=== PATIENT | male | born 1955 | race Caucasian/White ===

== ENCOUNTER 2017-08-21 16:52 | Emergency (ER) | payer MEDICAID, SELFPAY ==
[2017-08-21 16:54] VITALS: BMI 32.1
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
[2017-08-21 17:05] VITALS: BP 160/80; PULSE 92; RESP 16; TEMP 37; O2SAT 98
[2017-08-21 17:08] VITALS: BP 160/80; RESP 16; TEMP 36.8; O2SAT 98
[2017-08-21 17:10] LABS: Basophils % 0.2 % (0.1-2.0); Eosinophils % 0.2 % (0.1-12.0); Hematocrit 46.5 % (42.0-52.0); Lymphocytes # 2.2 K/mm3 (0.7-4.5); Lymphocytes % 12.3 K/mm3 (10-50); Mean Corpuscular HGB Conc 32.2 g/dL (31.8-35.4); Mean Corpuscular Hemoglobin 28.1 pg (27.0-31.2); Mean Corpuscular Volume 87.2 fl (80-94); Mean Platelet Volume 9.3 fl (7.4-10.4); Monocytes # 14.5 K/mm3 (0.1-1.0); Monocytes % 82.6 % (1.7-9.3); Neutrophils # 0.8 K/mm3 (1.8-7.8); Platelet Count 261 K/mm3 (142-424); Red Blood Count 5.33 M/mm3 (4.60-6.20); Red Cell Distribution Width 12.8 % (11.5-17.5); White Blood Count 17.6 K/mm3 (4.8-10.8)
[2017-08-21 17:12] LABS: MANUAL DIFFERENTIAL MANUAL DIFFERENTIAL (MANUAL DIFF); Neutrophils % 4.7 % (37.0-80.0)
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
[2017-08-21 17:16] LABS: INR 1.55 (0.9-1.1); Prothrombin Time 16.8 seconds (9.4-11.8)
[2017-08-21 17:19] LABS: Anion Gap 18.5 mEq/L (5-15); Blood Urea Nitrogen 34 mg/dL (7-18); Carbon Dioxide 24 mmol/L (21.0-32.0); Chloride 85 mmol/L (98-107); Creatinine Clearance Estimated 47 mL/min (0-300); Creatinine,Serum 2.43 mg/dL (0.70-1.30); Estimated Glomerular Filt Rate 27 ml/min (>60); GFR (African American) 33 ML/MIN (>60); Sodium 123 mmol/L (136-145)
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
[2017-08-21 17:24] LABS: Potassium 4.5 mmoL/L (3.5-5.1)
[2017-08-21 17:25] LABS: Glucose 773 mg/dL (74-106)
--- NOTE | 2017-08-21 17:27 | PC.NURSE ---
NOTIFIED MD OF CRITICAL GLUCOSE [phone]. WILL NOTIFY EMS.
[2017-08-21 17:29] VITALS: BMI 32.1
[2017-08-21 17:29] LABS: Lymphocytes % 4 % (10-50); Monocytes % 4 % (2-9); Neutrophils % 86 % (42-76); Platelet Estimate Normal; RBC Morphology Normal; Total Cells Counted 100
[2017-08-21 17:32] LABS: CKMB Relative Index 1.2 U/L (0-4.0); Creatine Kinase 113 U/L (39-308); Creatine Kinase MB 1.3 mg/ml (0.0-3.6); Troponin I < 0.02 ng/ml (0.00-0.06)
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
[2017-08-29 07:40] LABS: POC Glucose,Bedside > 600 mg/dL
== END 2017-08-21 17:45 | disposition short-term general hospital (02) ==
PROVIDERS: Emergency Provider Emergency Medicine; Family Provider Family Medicine; PCP Family Medicine
DX: S82.891A Other fracture of right lower leg, initial encounter for closed fracture (principal); S06.9X9A Unspecified intracranial injury with loss of consciousness of unspecified duration, initial encounter; S29.9XXA Unspecified injury of thorax, initial encounter; V47.9XXA Unspecified car occupant injured in collision with fixed or stationary object in traffic accident, initial encounter; Y92.410 Unspecified street and highway as the place of occurrence of the external cause
CPT/HCPCS: 71045; 72170; 73600; 80048; 82550; 82553; 82962; 84484; 85007; 85025; 85610; 93005; 99281

== ENCOUNTER → 2017-11-03 13:31 | Outpatient (CLI) | payer MEDICAID, SELFPAY ==
[2017-11-03 13:50] LABS: INR 3.72 (0.9-1.1); Prothrombin Time 40.7 seconds (9.4-11.8)
== END ==
PROVIDERS: Visit Provider Family Medicine
DX: Z79.01 Long term (current) use of anticoagulants (principal); Z51.81 Encounter for therapeutic drug level monitoring
CPT/HCPCS: 36415; 85610

== ENCOUNTER → 2017-12-21 14:03 | Outpatient (CLI) | payer MEDICAID, SELFPAY ==
[2017-12-21 14:25] LABS: INR 1.86 (0.9-1.1); Prothrombin Time 20.2 seconds (9.4-11.8)
== END ==
PROVIDERS: Visit Provider Family Medicine
DX: Z79.01 Long term (current) use of anticoagulants (principal); Z51.81 Encounter for therapeutic drug level monitoring
CPT/HCPCS: 36415; 85610

== ENCOUNTER 2020-10-21 18:44 | Emergency (ER) | payer MEDICARE, SELFPAY ==
[2020-10-21 19:03] VITALS: PULSE 74; RESP 16; TEMP 37; O2SAT 98; BMI 34.3
--- NOTE | 2020-10-21 19:36 | HMH.EDUTC ---
[facility] – [place] Disposition Clinical Impression: Bronchitis, Exposure to COVID-19 virus Disposition: Home, Self-Care Condition on Discharge: Good Instructions: Preventing the Spread of Coronavirus Discharge Instructions Additional Instructions: Drink plenty of fluids. Take tylenol for pain or fever. Return if you begin to have difficulty breathing. Follow up with your regular doctor. GO TO THE ER FOR ANY WORSENING SYMPTOMS Prescriptions: Azithromycin [Z-Steve 250mg Tab*] 250 mg PO UD DOSE PK #6 tab Transmission Status: Received by [facility] #[id number] Referrals: Tomy Jackson MD [Primary Care Provider] - Time of Disposition: 19:38 Medical Decision Making - Medical Records Medical records reviewed: No: I reviewed the patient's medical records. - Nuno Inquiry Pt receiving controlled substance: No Vital Signs: 10/21/20 19:03 10/21/20 19:50 Temperature 98.6 F 98.6 F Temperature Source Oral Oral Pulse Rate 75 Pulse Rate [Right] 74 Respiratory Rate 16 16 Blood Pressure 0/0 L Blood Pressure Source Automatic Cuff Blood Pressure Position Sitting 02 Sat by Pulse Oximetry 98 Oxygen Delivery Method Room Air Room Air [facility] [place] HPI - General Stated complaint: covid test Time Seen by Provider: 10/21/20 19:36 Mode of Arrival: Ambulatory Source of Information: Patient Limitations: No Limitations Description of Symptoms (Recalled from Triage Doc. by RN): wants covid test, cough HEENT Symptoms (Recalled from RN notes): No Resp Symptoms (Recalled from RN notes): No Skin Symptoms (Recalled from RN notes): No MS Symptoms (Recalled from RN notes): No Functional Status (Recalled from RN notes): na - History of Present Illness Provider Complaint: He has been having a cough for the past 2 days. He believes that his son has covid-19, but no one is sure yet. He denies any shortness of breath. - Related Data Previous Rx's Medication Instructions Recorded Azithromycin [Z-Steve 250mg Tab*] 250 mg PO UD DOSE PK #6 tab 10/21/20 Allergies Allergy/AdvReac Type Severity Reaction Status Date / Time amoxicillin [From AUGMENTIN] Allergy Mild Verified 08/21/17 17:34 clavulanic acid Allergy Mild Verified 08/21/17 17:34 [From AUGMENTIN] ibuprofen [IBUPROFEN] Allergy Unknown Verified 08/21/17 17:34 naproxen [From ALEVE] Allergy Unknown Verified 08/21/17 17:34 - Worker's Comp Is this a Worker's Comp case?: No H History - Hepatitis A Screen Drug use history?: No High risk sexual behaviors?: No History of sexually transmitted infection?: No Currently employed?: No Childcare worker?: No Do you have indoor plumbing?: Yes Do you have electricity?: Yes Attestation statement:: This patient has been screened for Hepatitis A risk factors. I have reviewed the patient's past medical history: Yes Medical History: Reports:: Diabetes Mellitus Type 2 Denies:: Cancer, Chronic Obstructive Pulmonary Disease (COPD), Diabetes Mellitus Type 1, MRSA Amputation: No - Social History Smoking Status: Unknown if ever smoked Alcohol Intake: never ROS Obtained: Yes All systems reviewed & no additional complaints - Constitutional Constitutional: Reports system reviewed and no additional complaints, except as docu - Eyes Eyes: Reports system reviewed and no additional complaints, except as docu - ENT Ears, Nose, Mouth, and Throat: Reports bleeding gums - Cardiovascular Cardiovascular: Denies chest pain - Respiratory Respiratory: Denies chest congestion, Reports cough, Denies dyspnea, Denies stridor, Denies wheezing - Gastrointestinal Gastrointestingal: Denies: abdominal pain, diarrhea, nausea, vomiting Physical Exam - General General appearance: alert, in no apparent distress - Head Head exam: atraumatic, normocephalic, normal inspection - Eye Eye exam: Present: normal appearance, PERRL, EOMI - ENT ENT exam: Present: normal exam, normal oropharynx, mucous membranes moist, TM's althea
[2020-10-21 19:50] VITALS: BP 0/0; PULSE 75; RESP 16; TEMP 37; O2SAT 98
--- NOTE | 2020-10-22 10:43 | PC.NURSE ---
Notified pt of positive covid results
== END 2020-10-21 19:51 | disposition home or self-care (01) ==
PROVIDERS: Emergency Provider Nurse Practitioner Family; PCP Family Medicine
DX: U07.1 COVID-19 (principal); E11.9 Type 2 diabetes mellitus without complications
CPT/HCPCS: 99202; G0463; U0003

== ENCOUNTER 2020-10-24 08:20 | Outpatient (CLI) | payer MEDICARE, SELFPAY ==
[2020-10-24] VITALS (7 sets, daily range): BP systolic 120–160; BP diastolic 74–96; PULSE 88–96; RESP 16–20; TEMP 36.6–37; O2SAT 94–99
== END 2020-10-24 10:50 | disposition home or self-care (01) ==
PROVIDERS: PCP Family Medicine; Visit Provider Family Medicine
DX: U07.1 COVID-19 (principal)
CPT/HCPCS: 96365

== ENCOUNTER → 2021-08-11 13:08 | Outpatient (CLI) | payer MEDICARE, SELFPAY ==
--- NOTE | 2021-08-11 | US_ITS ---
FINAL REPORT CLINICAL HISTORY: HTN, DM, hyperlipidemia, hx PA, CAD, bilateral rest pain, bilateral claudication FINDINGS: An ankle brachial indices was performed bilaterally. The vessels in the calf on the right are noncompressible. The vessels at the left thigh, calf, and left ankle (posterior tibial) are noncompressible decreasing the sensitivity. The MAG on the right is 1.31 which is normal. The MAG on the left is 0.97 which is normal. IMPRESSION: Suboptimal examination but with normal ABIs bilaterally. If indicated, CTA or MRA could further evaluate. Reviewed, Interpreted and Dictated by Leonel Garcia III, MD Transcribed by Dee Dee Mckeon Authenticated by Leonel Garcia III, MD on 08/11/2021 03:22:04 PM [facility]
== END ==
PROVIDERS: PCP Family Medicine; Visit Provider Family Medicine
DX: I70.213 Atherosclerosis of native arteries of extremities with intermittent claudication, bilateral legs (principal)
CPT/HCPCS: 93923

== ENCOUNTER → 2021-09-06 12:22 | Outpatient (CLI) | payer MEDICARE, SELFPAY ==
[2021-09-06 13:30] LABS: Blood Urea Nitrogen 22 mg/dl (9-20); Estimated Glomerular Filt Rate 40 ml/min (>60); GFR (African American) 49 ML/MIN (>60)
--- NOTE | 2021-09-06 13:53 | CT_ITS ---
FINAL REPORT CLINICAL HISTORY: WHITNEY CLAUDICATION,ABD AORTA numbness and tingling in legs and feet// taking gabapentin and has improved FINDINGS: Thin section axial CT images of the abdomen, pelvis and lower extremities were obtained with contrast. Multiplanar reformatted images were also obtained and reviewed. ABDOMEN AND PELVIS: There are moderate, diffuse vascular calcifications which decreases sensitivity at some levels. There is no evidence of abdominal aortic aneurysm or dissection. Abdominal aorta measures 2.2 cm in diameter. The celiac axis and proximal superior mesenteric artery are unremarkable. There is calcified plaque at the origin of the renal arteries without significant stenosis. The inferior mesenteric artery is patent. There is no significant stenosis of the right common iliac artery or external right iliac artery. There is no significant stenosis of the left common iliac artery or external left iliac artery. The internal iliac arteries are patent. RIGHT LOWER EXTREMITY: There are multiple calcified plaques with multiple stenoses of the SFA measuring less than 50%. There is mild stenosis of the popliteal artery, also less than 50%. Probable occlusion is seen of the proximal right anterior tibial artery with reconstitution at the ankle. Mild, multifocal stenosis are seen of the posterior tibial and peroneal vessels. LEFT LOWER EXTREMITY: There are multiple, mild stenoses of SFA. Moderate stenosis is seen of the popliteal artery measuring approximately 50%. There is apparent occlusion of the proximal anterior tibial artery with apparent reconstitution of the distal anterior tibial artery at the ankle. Multiple mild stenoses of the posterior tibial and peroneal arteries OTHER FINDINGS: There is cortical thinning of the kidneys. Multiple diverticula are seen at the descending and sigmoid colon. There is a small umbilical hernia containing fat. The appendix is normal. Postoperative changes are seen from right hip arthroplasty resulting in streak artifact. There are small bilateral inguinal hernias containing only fat. IMPRESSION: Probable occlusion of the bilateral proximal anterior tibial arteries with reconstitution distally. Approximately 50% stenosis of the left popliteal artery. Multiple other mild stenoses with moderate vascular calcifications. Reviewed, Interpreted and Dictated by Leonel Garcia III, MD Transcribed by Abbey Robles Authenticated by Leonel Garcia III, MD on 09/06/2021 04:35:51 PM [facility]
== END ==
PROVIDERS: PCP Family Medicine; Visit Provider Family Medicine
DX: I70.213 Atherosclerosis of native arteries of extremities with intermittent claudication, bilateral legs (principal)
CPT/HCPCS: 36415; 75635; 82565; 84520; Q9967

== ENCOUNTER 2022-03-28 14:27 | Emergency (ER) | payer MEDICARE, SELFPAY ==
[2022-03-28 14:45] VITALS: BP 132/85; PULSE 89; RESP 16; TEMP 37; O2SAT 98; BMI 28.7
--- NOTE | 2022-03-28 14:51 | CT_ITS ---
PROCEDURE INFORMATION: Exam: CT Head Without Contrast Exam date and time: 03/28/2022 2:55 PM Age: 66 years old Clinical indication: Injury or trauma; Fall; Blunt trauma (contusions or hematomas); Additional info: Head injury on coumadin TECHNIQUE: Imaging protocol: Computed tomography of the head without contrast. Radiation optimization: All CT scans at this facility use at least one of these dose optimization techniques: automated exposure control; mA and/or kV adjustment per patient size (includes targeted exams where dose is matched to clinical indication); or iterative reconstruction. COMPARISON: No relevant prior studies available. FINDINGS: Brain: Prominent sulci. Patchy hypodensity of the cerebral white matter which are nonspecific but likely secondary to microangiopathic changes. Ischemic change in the left thalamus and basal ganglia, possibly with a subacute component. Cerebral ventricles: The ventricles are prominent secondary to diffuse volume loss/atrophy. Paranasal sinuses: Moderate opacification of the paranasal sinuses. Mastoid air cells: Visualized mastoid air cells are well aerated. Bones/joints: Unremarkable. No acute fracture. Soft tissues: Unremarkable. IMPRESSION: 1. Ischemic change in the left thalamus and basal ganglia, possibly with a subacute component. 2. Moderate opacification of the paranasal sinuses. 3. Remainder of findings as described above. These findings were discussed with Altaf Garrido at 3:55 p.m. EST.
--- NOTE | 2022-03-28 14:51 | XR_ITS ---
PROCEDURE INFORMATION: Exam: XR Right Elbow Exam date and time: 03/28/2022 3:07 PM Age: 66 years old Clinical indication: Injury or trauma; Fall; Blunt trauma (contusions or hematomas); Elbow; Right TECHNIQUE: Imaging protocol: Radiologic exam of the Right elbow. Views: 3 or more views. COMPARISON: EXTURWO CT EXT.UPPER-R 11/18/2016 7:53 PM FINDINGS: Bones/joints: Comminuted fracture involving the olecranon with angulation and displacement. Moderate olecranon spur is noted. Soft tissues: Tissue swelling about the elbow. Vasculature: Vascular calcifications are present. IMPRESSION: Comminuted fracture involving the olecranon with angulation and displacement.
--- NOTE | 2022-03-28 14:51 | HMH.EDGENADL ---
Discharge Plan Disposition Patient Disposition: Home, Self-Care Condition: Good Prescriptions Prescriptions: New hydrocodone-acetaminophen 5-325 mg tablet 1 tab PO Q6H PRN (Reason: pain) Qty: 14 0RF No Action azithromycin 250 MG tablet 250 mg PO UD DOSE PK Qty: 6 0RF Rx Instructions: Take two (2) tablets today, then one (1) tablet days #2 thru #5 Referrals Follow up/Referrals: Diane Palomino APRN [Primary Care Provider] - See instructions Clinical Impressions Clinical Impression: Fracture of olecranon process of right ulna with intraarticular extension, CHI (closed head injury) Instructions Patient Instructions: DI for Elbow Fracture, Hydrocodone Print Language Print Language: Amharic Discharge ED Provider: Altaf Zavala Adult HPI General Chief complaint: PAIN Stated complaint: ao fall 03/28, right elbow pain Time Seen by Provider: 03/28/22 14:51 History of Present Illness HPI narrative: 66-year-old male presents status post fall while working on a tractor, landed on concrete, struck the right side of his head and right elbow which is the most significant area of discomfort at this time. He is on Coumadin routinely. He denies loss of consciousness, denies any change in vision, headache, nausea or vomiting after the event which occurred about an hour ago. He is unaware of whether or not tetanus is up-to-date so was updated here. He sustained a small skin tear to the lateral right wrist, abrasion of the right elbow, significant swelling of the right elbow with pain with any attempted range of motion. He denies any neck pain, back pain, numbness, tingling or other symptoms at this time. Related Data Previous Rx's Medication Instructions Recorded azithromycin 250 mg tablet 250 mg PO UD DOSE PK #6 tabs 10/21/20 hydrocodone 5 mg-acetaminophen 325 1 tab PO Q6H PRN pain #14 tabs 03/28/22 mg tablet Allergies Allergy/AdvReac Type Severity Reaction Status Date / Time amoxicillin [From AUGMENTIN] Allergy Mild Verified 08/21/17 17:34 clavulanic acid Allergy Mild Verified 08/21/17 17:34 [From AUGMENTIN] ibuprofen [IBUPROFEN] Allergy Unknown Verified 08/21/17 17:34 naproxen [From ALEVE] Allergy Unknown Verified 08/21/17 17:34 PFSH PFSH Social History Smoking Status: Unknown if ever smoked alcohol intake: never current occupational status: employed Travel in the last 8 weeks: None ROS Obtained: Yes Systems reviewed as appropriate & no additional complaints except as documented Constitutional Constitutional: Reports system reviewed and no additional complaints, except as documented Eyes Eyes: Reports system reviewed and no additional complaints, except as documented ENT Ears, Nose, Mouth, and Throat: Reports system reviewed and no additional complaints, except as documented Cardiovascular Cardiovascular: Reports system reviewed and no additional complaints, except as documented Respiratory Respiratory: Reports system reviewed and no additional complaints, except as documented Gastrointestinal Gastrointestingal: Reports system reviewed and no additional complaints, except as documented Genitourinary Male Genitourinary: Reports system reviewed and no additional complaints, except as documented Musculoskeletal Musculoskeletal: Reports arthralgias (Right elbow pain and swelling) Integumentary/Breasts Skin/Breast: Reports system reviewed and no additional complaints, except as documented Neurologic Neurologic: Reports system reviewed and no additional complaints, except as documented Physical Exam General General appearance: alert and in no apparent distress Head Head exam: normocephalic, normal inspection and other (Abrasion right forehead) Eye Eye exam: Present normal appearance, PERRL and EOMI ENT ENT exam: Present normal exam, normal oropharynx, mucous membranes moist, TM's normal bilaterally and normal externa
[2022-03-28 15:43] LABS: INR 2.14 (0.9-1.1); Prothrombin Time 22.1 seconds (10.1-12.5)
--- NOTE | 2022-03-28 15:53 | PC.NURSE ---
MONIQUE PHILLIPS speaking with jose david at this time.
--- NOTE | 2022-03-28 16:49 | PC.NURSE ---
long arm splint applied to rt arm
--- NOTE | 2022-03-28 16:52 | PC.NURSE ---
assisted with splint application with Dee Dee MOSS, then applied the sling which pt tolerated well
[2022-03-28 17:05] VITALS: BP 123/74; PULSE 87; RESP 16; TEMP 37; O2SAT 98
== END 2022-03-28 17:07 | disposition home or self-care (01) ==
LOC: UTC 14:30 → ER 14:34
PROVIDERS: Emergency Provider Emergency Medicine; PCP Nurse Practitioner Family
DX: S52.021A Displaced fracture of olecranon process without intraarticular extension of right ulna, initial encounter for closed fracture; W17.89XA Other fall from one level to another, initial encounter; Z23 Encounter for immunization; Z79.01 Long term (current) use of anticoagulants
CPT/HCPCS: 29065; 70450; 73080; 85610; 90715; 99284

== ENCOUNTER 2024-02-05 10:29 | Inpatient (IN) | payer MEDICARE, SELFPAY ==
[2024-02-05] VITALS (48 sets, daily range): BP systolic 79–121; BP diastolic 56–87; PULSE 43–82; RESP 18; TEMP 36.3–36.7; O2SAT 91–100; BMI 29.0; BMI 28.6
--- NOTE | 2024-02-05 10:48 | ECG_ITS ---
APPROVED REPORT Exam: Resting ECG HR:79 bpm ECG Measurements Heart Rate 79 AXES TN 172 P 33 QRSd 109 QRS 17 QT 366 T 71 QTc 401 Conclusion SINUS RHYTHM WITH OCCASIONAL VENTRICULAR PREMATURE COMPLEXES WITH OCCASIONAL SUPRAVENTRICULAR PREMATURE COMPLEXES LOW QRS VOLTAGE IN PRECORDIAL LEADS [QRS DEFLECTION < 1.0 mV IN CHEST LEADS] POSSIBLE RIGHT VENTRICULAR CONDUCTION DELAY [RSR (QR) IN V1/V2] BORDERLINE ECG Electronically signed by : LALO MARTINEZ, 02/05/2024 22:52:15
--- NOTE | 2024-02-05 10:54 | ED_ITS ---
Discharge Plan Disposition Patient Disposition: Admitted Condition: Fair Chief Complaint: Weakness Prescriptions Prescriptions: No Action azithromycin 250 MG tablet 250 mg PO UD DOSE PK Qty: 6 0RF Rx Instructions: Take two (2) tablets today, then one (1) tablet days #2 thru #5 hydrocodone-acetaminophen 5-325 mg tablet 1 tab PO Q6H PRN (Reason: pain) Qty: 14 0RF Referrals Follow up/Referrals: Soy Loco MD [Primary Care Provider] - See instructions Clinical Impressions Clinical Impression: Blood in stool, Anemia, ANTHONY (acute kidney injury), Elevated brain natriuretic peptide (BNP) level Discharge ED Provider: Shar Hu General Adult HPI General Chief complaint: Weakness Stated complaint: Nauseated, dizziness, lowbp, feet numb Time Seen by Provider: 02/05/24 10:51 Mode of Arrival: Wheelchair Source of Information: Patient Limitations: No Limitations Description of Symptoms (Recalled from ER Triage Doc. by RN): PT SENT FROM PCP. REPORTS ONGOING WEAKNESS, NAUSEA, SHORTNESS OF BREATH, EDEMA OF BLE, PAIN AND STIFFNESS OF NECK AND SHOULDERS, REPORTS DARK STOOLS. History of Present Illness HPI narrative: 68-year-old male with past medical history significant for asthma, DM2, HLD, HTN, MT on Coumadin, denies history of PE/DVT, presents today for evaluation concerning nausea and shortness of breath which he states has been persistent over the past 2 weeks. Denies having any chest pain. He also reports bilateral lower extremity swelling over the past week. 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 Believes that he may be dehydrated. States that he has had dark stools but notes that it is beet season and he has eaten more than 5 quarts of beets over the past couple of weeks noting that his stools are usually dark during that time. Denies have any abdominal pain. He denies any fevers, chills or any other associated symptoms at this time. Related Data Previous Rx's Medication Instructions Recorded azithromycin 250 mg tablet 250 mg PO UD DOSE PK #6 tabs 10/21/20 hydrocodone 5 mg-acetaminophen 325 1 tab PO Q6H PRN pain #14 tabs 03/28/22 mg tablet Allergies Allergy/AdvReac Type Severity Reaction Status Date / Time amoxicillin [From AUGMENTIN] Allergy Mild Verified 08/21/17 17:34 clavulanic acid Allergy Mild Verified 08/21/17 17:34 [From AUGMENTIN] ibuprofen [IBUPROFEN] Allergy Unknown Verified 08/21/17 17:34 naproxen [From ALEVE] Allergy Unknown Verified 08/21/17 17:34 PFSH [facility], [facility] Disclaimer: The information contained in this section may have been updated after the patient was seen, as this information can be updated by other users. Social History (Updated 03/28/22 @ 16:22 by Altaf Zavala MD) Smoking Status: Never smoker alcohol intake: never current occupational status: employed Travel in the last 8 weeks: None ROS Obtained: Yes All systems reviewed & no additional complaints except as documented Physical Exam General General appearance: alert and in no apparent distress Head Head exam: atraumatic and normocephalic Eye Eye exam: Present normal appearance, PERRL and EOMI ENT ENT exam: Present normal oropharynx and mucous membranes moist Neck Neck exam: Present full ROM; Absent meningismus Respiratory Respiratory exam: Absent respiratory distress, wheezes, stridor or accessory muscle use Cardiovascular Cardiovascular exam: Present normal rhythm Abdominal Exam Abdominal exam: Present soft; Absent distention, tenderness, guarding, rebound or rigidity Extremities Exam Extremities exam: Present edema (1+ pitting edema in bilateral lower extremity); Absent tenderness Neurological Exam Neurological exam: Present alert, oriented X3 and CN II-XII intact; Absent motor sensory deficit Psychiatric Psychiatric exam: Present normal affect and normal mood Skin Skin exam: Present warm and dry Medical Decision Making Medical Records Medical records reviewed: Yes I reviewed the patient's medical records. Nuno Inquiry Pt receiving controlled substance: No Nuno was queried for this patient: No Vital Signs: 02/05/24 10:31 02/05/24 10:35 02/05/24 11:00 Temperature 97.7 F Temperature Source Oral Pulse Rate 72 43 L Pulse Rate [Radial] 72 Respiratory Rate 18 TAR Vitals Timing Blood Pressure 111/82 91/71 L Blood Pressure [Right Arm] 111/82 Blood Pressure Mean Blood Pressure Mean [Right Arm] 91 Blood Pressure Source [Right Arm] Automatic Cuff Blood Pressure Position [Right Arm] Sitting 02 Sat by Pulse Oximetry 99 99 95 Oxygen Delivery Method Room Air Room Air Room Air 02/05/24 11:31 02/05/24 12:25 02/05/24 13:00 Temperature Temperature Source Pulse Rate 77 70 61 Pulse Rate [Radial] Respiratory Rate TAR Vitals Timing Blood Pressure 101/58 L 80/60 L 79/58 L Blood Pressure [Right Arm] Blood Pressure Mean Blood Pressure Mean [Right Arm] Blood Pressure Source [Right Arm] Blood Pressure Position [Right Arm] 02 Sat by Pulse Oximetry 95 97 98 Oxygen Delivery Method Room Air Room Air Room Air 02/05/24 13:32 02/05/24 14:00 02/05/24 14:30 Temperature Temperature Source Pulse Rate 61 63 Pulse Rate [Radial] Respiratory Rate TAR Vitals Timing Blood Pressure 102/57 L 110/56 L 115/74 Blood Pressure [Right Arm] Blood Pressure Mean Blood Pressure Mean [Right Arm] Blood Pressure Source [Right Arm] Blood Pressure Position [Right Arm] 02 Sat by Pulse Oximetry 99 92 L 99 Oxygen Delivery Method Room Air Room Air Room Air 02/05/24 15:00 02/05/24 15:12 02/05/24 15:16 Temperature Temperature Source Pulse Rate 70 69 66 Pulse Rate [Radial] Respiratory Rate TAR Vitals Timing Blood Pressure 102/72 L 117/62 119/66 Blood Pressure [Right Arm] Blood Pressure Mean Blood Pressure Mean [Right Arm] Blood Pressure Source [Right Arm] Blood Pressure Position [Right Arm] 02 Sat by Pulse Oximetry 99 92 L 100 Oxygen Delivery Method Room Air Room Air Room Air 02/05/24 15:19 02/05/24 15:20 02/05/24 15:25 Temperature 97.6 F Temperature Source Oral Pulse Rate 67 61 76 Pulse Rate [Radial] Respiratory Rate 18 TAR Vitals Timing Pre-Blood Vitals Blood Pressure 119/66 113/72 108/68 L Blood Pressure [Right Arm] Blood Pressure Mean 83 Blood Pressure Mean [Right Arm] Blood Pressure Source [Right Arm] Blood Pressure Position [Right Arm] 02 Sat by Pulse Oximetry 100 100 98 Oxygen Delivery Method Room Air Room Air 02/05/24 15:28 02/05/24 15:28 02/05/24 15:31 Temperature 97.7 F Temperature Source Oral Pulse Rate 63 61 66 Pulse Rate [Radial] Respiratory Rate 18 TAR Vitals Timing Start Vitals Blood Pressure 108/68 L 112/70 120/86 Blood Pressure [Right Arm] Blood Pressure Mean 81 Blood Pressure Mean [Right Arm] Blood Pressure Source [Right Arm] Blood Pressure Position [Right Arm] 02 Sat by Pulse Oximetry 97 100 99 Oxygen Delivery Method Room Air Room Air 02/05/24 15:33 02/05/24 15:34 02/05/24 15:35 Temperature 97.6 F Temperature Source Oral Pulse Rate 63 65 64 Pulse Rate [Radial] Respiratory Rate 18 TAR Vitals Timing 5 Minute Blood Pressure 93/57 L 90/70 L 93/57 L Blood Pressure [Right Arm] Blood Pressure Mean 69 Blood Pressure Mean [Right Arm] Blood Pressure Source [Right Arm] Blood Pressure Position [Right Arm] 02 Sat by Pulse Oximetry 95 98 100 Oxygen Delivery Method Room Air Room Air 02/05/24 15:38 02/05/24 15:41 02/05/24 15:43 Temperature 97.6 F 97.6 F Temperature Source Oral Oral Pulse Rate 63 72 62 Pulse Rate [Radial] Respiratory Rate 18 18 TAR Vitals Timing 10 Minute 15 Minute Blood Pressure 99/67 L 99/67 L 108/72 L Blood Pressure [Right Arm] Blood Pressure Mean 77 84 Blood Pressure Mean [Right Arm] Blood Pressure Source [Right Arm] Blood Pressure Position [Right Arm] 02 Sat by Pulse Oximetry 91 L 100 100 Oxygen Delivery Method Room Air 02/05/24 15:45 02/05/24 15:50 02/05/24 15:58 Temperature 97.4 F L Temperature Source Oral Pulse Rate 65 68 63 Pulse Rate [Radial] Respiratory Rate 18 TAR Vitals Timing 30 Minute Blood Pressure 108/72 L 103/67 L 100/86 L Blood Pressure [Right Arm] Blood Pressure Mean 90 Blood Pressure Mean [Right Arm] Blood Pressure Source [Right Arm] Blood Pressure Position [Right Arm] 02 Sat by Pulse Oximetry 100 100 100 Oxygen Delivery Method Room Air Room Air 02/05/24 16:00 02/05/24 16:05 02/05/24 16:10 Temperature Temperature Source Pulse Rate 64 65 63 Pulse Rate [Radial] Respiratory Rate TAR Vitals Timing Blood Pressure 116/75 117/73 109/71 L Blood Pressure [Right Arm] Blood Pressure Mean Blood Pressure Mean [Right Arm] Blood Pressure Source [Right Arm] Blood Pressure Position [Right Arm] 02 Sat by Pulse Oximetry 100 100 100 Oxygen Delivery Method Room Air Room Air Room Air 02/05/24 16:13 02/05/24 16:28 Temperature 97.4 F L 97.4 F L Temperature Source Oral Oral Pulse Rate 65 Pulse Rate [Radial] Respiratory Rate 18 18 TAR Vitals Timing 45 Minute 60 Minute Blood Pressure 105/85 L 110/80 Blood Pressure [Right Arm] Blood Pressure Mean 91 90 Blood Pressure Mean [Right Arm] Blood Pressure Source [Right Arm] Blood Pressure Position [Right Arm] 02 Sat by Pulse Oximetry 98 98 Oxygen Delivery Method Lab Data Lab Results 02/05/24 10:40: WBC 14.3 H, RBC 2.20 L, Hgb 6.9 L, Hct 21.9 L, MCV 99.8 H, MCH 31.5 H, MCHC 31.5 L, RDW 19.4 H, Plt Count 352, MPV 8.6, Neut % (Auto) 27.6 L, Lymph % (Auto) 11.4, [place] % (Auto) 60.2 H, Eos % (Auto) 0.4, Baso % (Auto) 0.4, Neut # (Auto) 4.0, Lymph # (Auto) 1.6, [place] # (Auto) 8.6 H, Eos # (Auto) 0.1, Baso # (Auto) 0.1, Total Counted 100, Neutrophils % (Manual) 88 H, Lymphocytes % (Manual) 9 L, Monocytes % (Manual) 3, Platelet Estimate Normal, Hypochromasia 2+, Anisocytosis 3+, Macrocytosis 2+, Sodium 137, Potassium 4.8, Chloride 109 H, Carbon Dioxide 19 L, Anion Gap 13.8, BUN 28 H, Creatinine 1.60 H, Estimated Creat Clear 60, Estimated GFR 43 L, Est GFR ( Amer) 52 L, Glucose 161 H, Calcium 8.8, Total Bilirubin 0.5, AST 28, ALT 32, Alkaline Phosphatase 88, Troponin I < 0.01, NT-Pro-B Natriuret Pep 570 H, Total Protein 6.3, Albumin 3.8, Globulin 2.5, Albumin/Globulin Ratio 1.5, Blood Type Confirm A Negative 02/05/24 12:29: Blood Type A Negative, Antibody Screen Negative, Crossmatch ([facility]) See Detail 02/05/24 12:44: Stool Occult Blood Positive A 02/05/24 : Troponin I < 0.01 02/05/24 10:40 02/05/24 10:40 Orders (Tests/Meds): ED MEDICATIONS Generic Name Dose Route Start Last Admin Trade Name Freq PRN Reason Stop Dose Admin Sodium Chloride 250 mls @ 25 mls/hr 02/05/24 12:15 02/05/24 15:17 Sod Chlor 0.9% 250ml Bag IV 02/06/24 12:14 25 mls/hr .Q10H JAVAN Administration Sodium Chloride 10 ml 02/05/24 10:52 Sodium Chloride 0.9% 10ml Flush Syringe IV 03/06/24 10:51 NEEDED PRN Maintain IV Site Sodium Chloride 10 ml 02/05/24 16:18 02/05/24 16:20 Sodium Chloride 0.9% 10ml Syr (Rad Only) IV 03/06/24 16:17 10 ml NEEDED PRN Administration Maintain IV Site Discontinued Medications Generic Name Dose Route Start Last Admin Trade Name Freq PRN Reason Stop Dose Admin Iopamidol 100 ml 02/05/24 16:18 02/05/24 16:20 Iopamidol-370 (76%);100ml Bottle IV 02/05/24 16:19 100 ml ONCE ONE Administration Ondansetron HCl 4 mg 02/05/24 11:09 02/05/24 11:16 Ondansetron 4mg Odt SL 02/05/24 11:10 4 mg ONCE ONE Administration Sodium Chloride 50 ml 02/05/24 16:18 02/05/24 16:19 0.9 % Sodium Chloride 50 Ml Vial IV 02/05/24 16:19 50 ml ONCE ONE Administration ORDERS Category Date Time Status PRBC [Red Blood Cells] Stat [facility] 02/05/24 12:29 Results Type and Screen Stat [facility] 02/05/24 12:[address] angio abdomen pelvis Stat Cat Scan 02/05/24 15:03 Taken CXR 2 view (NOT portable) [XR chest 2V] Stat Exams 02/05/24 11:09 Completed Complete Blood Count Auto Diff Stat Lab 02/05/24 10:40 Completed Comprehensive Metabolic Panel Stat Lab 02/05/24 10:40 Completed INR [Prothrombin Time INR] Stat Lab 02/05/24 10:40 Received NT Pro Brain Natriuretic Pep. Stat Lab 02/05/24 10:40 Completed Occult Blood,Stool Stat Lab 02/05/24 12:44 Completed Trop I [Troponin I] Stat Lab 02/05/24 10:40 Completed Troponin I Q3H Lab 02/05/24 Completed Troponin I Q3H Lab 02/05/24 17:15 Ordered Medical Decision Narrative: 68-year-old male with past medical history significant for asthma, DM2, HLD, HTN, MT on Coumadin, denies history of PE/DVT, presents today for evaluation concerning nausea and shortness of breath which he states has been persistent over the past 2 weeks. Denies having any chest pain. He also reports bilateral lower extremity swelling over the past week. 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 Believes that he may be dehydrated. States that he has had dark stools but notes that it is beet season and he has eaten more than 5 quarts of beets over the past couple of weeks noting that his stools are usually dark during that time. Denies have any abdominal pain. On assessment he was hemodynamically stable and in no acute distress. Afebrile. His chest was clear to auscultation bilaterally. His abdomen was soft nondistended and nontender to palpation. 1+ pitting edema in bilateral lower extremities. Other physical exam findings unremarkable. Differential diagnoses include not limited to STEMI, NSTEMI, CHF, gastritis, gastroenteritis, electrolyte disturbance, among others EKG was personally inter by me and was remarkable for sinus rhythm with occasional PVCs. No ischemic changes. WBC elevated at 14.3 today. Hemoglobin at 6.9. Hematocrit 21.9 creatinine elevated at 1.6. BNP elevated at 570. Initial troponin less than 0.01. I did perform a bedside rectal exam and there was dark stool noted around the anus. Stool occult was collected and sent for analysis, results are positive. Patient was without abdominal pain however given his possible GI bleed, CTA abdomen pelvis was also ordered, currently pending at this time. On reassessment the patient remains hemodynamically stable and in no acute distress. Discussed current ED results and plan. He was consented for blood transfusion and 1 unit of PRBCs was ordered and transfused. Given patient's creatinine elevation, symptomatic anemia and BNP elevation, he will need admission for further management, thus I consulted with hospital medicine and discussed management. Hospital medicine has noted that general surgery can perform scope for further assessment. They will follow-up on CTA abdomen pelvis results. Patient updated on results and current plan. He was agreeable. Remained stable and in no acute distress at this time. Critical Care Critical Care Time Critical Care Time: No
--- NOTE | 2024-02-05 10:55 | PC.NURSE ---
DR DUNN AT BEDSIDE
[2024-02-05 11:03] LABS: Chloride 109 mmol/L (98-107)
[2024-02-05 11:04] LABS: Potassium 4.8 mmoL/L (3.5-5.1); Sodium 137 mmol/L (136-145)
[2024-02-05 11:06] LABS: Alanine Aminotransferase 32 U/L (12-78); Aspartate Amino Transferase 28 U/L (17-59); Blood Urea Nitrogen 28 mg/dl (9-20); Creatinine Clearance Estimated 60 mL/min (50-200); Estimated Glomerular Filt Rate 43 ml/min (>60); GFR (African American) 52 ML/MIN (>60)
[2024-02-05 11:07] LABS: Albumin Level 3.8 g/dl (3.5-5.0); Albumin/Globulin Ratio 1.5 (1.1-1.8); Alkaline Phosphatase 88 U/L (38-126); Anion Gap 13.8 mEq/L (5-15); Bilirubin,Total 0.5 mg/dl (0.2-1.3); Calcium 8.8 mg/dl (8.4-10.2); Carbon Dioxide 19 mmol/L (22.0-30.0); Globulin 2.5 g/dL (1.3-3.2); Glucose 161 mg/dl (74-100); Total Protein,Serum 6.3 g/dl (6.3-8.2)
--- NOTE | 2024-02-05 11:09 | XR_ITS ---
FINAL REPORT CLINICAL HISTORY: SOB FINDINGS: 2 views of the chest were obtained . The heart is normal in size. The mediastinum is within normal limits. The lungs are clear. There is no pneumothorax. Osseous structures are unremarkable. IMPRESSION: No acute cardiopulmonary process. Reviewed, Interpreted and Dictated by Odalis Crowell MD Transcribed by Abbey Robles Authenticated and [facility]
[2024-02-05 11:16] LABS: NT Pro Brain Natriuretic Pep. 570 pg/mL (0-125)
[2024-02-05] MEDS: ONDANSETRON 4MG ODT 4 MG SL (11:16)
--- NOTE | 2024-02-05 11:17 | PC.NURSE ---
PT TO CT
[2024-02-05 11:21] LABS: Basophils # 0.1 K/mm3 (0-0.2); Basophils % 0.4 % (0.1-2.0); Eosinophils # 0.1 K/mm3 (0.0-0.4); Eosinophils % 0.4 % (0.1-12.0); Hematocrit 21.9 % (42.0-52.0); Lymphocytes # 1.6 K/mm3 (0.7-4.5); Lymphocytes % 11.4 % (10-50); Mean Corpuscular HGB Conc 31.5 g/dL (31.8-35.4); Mean Corpuscular Hemoglobin 31.5 pg (27.0-31.2); Mean Corpuscular Volume 99.8 fl (80-94); Mean Platelet Volume 8.6 fl (7.4-10.4); Monocytes # 8.6 K/mm3 (0.1-1.0); Monocytes % 60.2 % (1.7-9.3); Neutrophils % 27.6 % (37.0-80.0); Platelet Count 352 K/mm3 (142-424); Red Cell Distribution Width 19.4 % (11.5-17.5); White Blood Count 14.3 K/mm3 (4.8-10.8)
[2024-02-05 11:39] LABS: Troponin I < 0.01 ng/ml (0.00-0.034)
[2024-02-05 11:54] LABS: Hemoglobin 6.9 g/dL (14.1-18.0)
[2024-02-05 11:57] LABS: MANUAL DIFFERENTIAL MANUAL DIFFERENTIAL (MANUAL DIFF)
[2024-02-05 12:53] LABS: Lymphocytes % 9 % (10-50); Monocytes % 3 % (2-9); Neutrophils % 88 % (42-76); Total Cells Counted 100
[2024-02-05 12:54] LABS: Anisocytosis 3+; Hypochromasia 2+; Macrocytosis 2+; Platelet Estimate Normal
--- NOTE | 2024-02-05 15:03 | CT_ITS ---
PROCEDURE INFORMATION: Exam: CTA Abdomen and Pelvis With Contrast Exam date and time: 02/05/2024 4:19 PM Age: 68 years old Clinical indication: Other: Possible gi bleeding TECHNIQUE: Imaging protocol: Computed tomographic angiography of the abdomen and pelvis with contrast. Exam focused on the arteries. 3D rendering (Not supervised by radiologist): MIP and/or 3D reconstructed images were created by the technologist. Radiation optimization: All CT scans at this facility use at least one of these dose optimization techniques: automated exposure control; mA and/or kV adjustment per patient size (includes targeted exams where dose is matched to clinical indication); or iterative reconstruction. Contrast material: ISOVUE; Contrast volume: 100 ml; Contrast route: INTRAVENOUS (IV); COMPARISON: CT ANGIO ABDOMEN/FEMORAL 09/06/2021 2:04 PM FINDINGS: Limitations: Streak artifact from hip hardware limits visualization of pelvic structures. Aorta: Moderate amount of calcific arterial atherosclerosis throughout the aorta. No abdominal aortic aneurysm or dissection. 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 No significant stenosis in the celiac trunk and branches. No aneurysm or dissection. Inferior mesenteric artery is patent. Renal arteries: Mild (less than 50%) ostial stenosis in the bilateral main renal arteries secondary to atherosclerotic plaque. No aneurysm or dissection. Right iliac arteries: No aneurysm, occlusion, or significant stenosis. Left iliac arteries: No aneurysm, occlusion, or significant stenosis. Liver: Unremarkable. Gallbladder and biliary ducts: Unremarkable. Pancreas: Unremarkable. Spleen: Unremarkable. Adrenal glands: Unremarkable. Kidneys and ureters: No renal or ureteral stones. No hydronephrosis. Stomach and bowel: Few scattered colonic diverticula without evidence of diverticulitis. Appendix: Appendix is visualized and is normal. Intraperitoneal space: No free fluid. No pneumoperitoneum. Lymph nodes: Unremarkable. Urinary bladder: Unremarkable. Reproductive: Prostate is enlarged, measuring approximately 5.5 cm in transverse axis. Bones/joints: Post-operative changes of prior right total hip arthroplasty. Multi-level bridging or beaked disc osteophytes in the lower thoracic spine compatible with diffuse idiopathic skeletal hyperostosis (DISH). Soft tissues: Small fat containing umbilical hernia, unchanged. IMPRESSION: 1. No evidence of gastrointestinal bleeding or other acute intra-abdominal pathology. 2. 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 3. Mild (less than 50%) ostial stenosis in the bilateral main renal arteries secondary to atherosclerotic plaque. 4. Enlarged prostate. 5. Additional non-acute ancillary findings are detailed above.
[2024-02-05 15:06] LABS: Occult Blood,Stool Positive (Negative)
[2024-02-05] MEDS: 0.9 % SODIUM CHLORIDE 250 ML 25 ML IV (15:17)
[2024-02-05 15:18] LABS: Troponin I < 0.01 ng/ml (0.00-0.034)
--- NOTE | 2024-02-05 15:18 | PC.NURSE ---
Blood product information and patient information verified at bedside with Savi King RN.
[2024-02-05] MEDS: 0.9 % SODIUM CHLORIDE 50 ML VIAL IV (16:19)
[2024-02-05] MEDS: SODIUM CHLORIDE 0.9% 10ML SYR (RAD ONLY) 10 ML IV (16:20)
[2024-02-05] MEDS: IOPAMIDOL-370 (76%);100ML BOTTLE 100 ML IV (16:20)
--- NOTE | 2024-02-05 16:32 | PC.NURSE ---
DR DUNN SPEAKING WITH HOSPITALIST AT THIS TIME FOR ADMISSION
--- NOTE | 2024-02-05 16:50 | PC.NURSE ---
FUND CONTROLLER NOTIFIED OF ADMISSION
[2024-02-05 16:59] LABS: INR 1.47 (0.9-1.1); Prothrombin Time 15.8 seconds (10.1-12.5)
--- NOTE | 2024-02-05 17:03 | PC.NURSE ---
REPORT CALLED ISA EVANS
--- NOTE | 2024-02-05 17:22 | PC.NURSE ---
arrived by wheelchair from ed
[2024-02-05 18:11] LABS: Troponin I < 0.01 ng/ml (0.00-0.034)
--- NOTE | 2024-02-05 18:56 | EXP.HP ---
History of Present Illness *Admission Date: 02/05/24 *Reason for visit:: Symptomatic anemia *History of present illness: Patient with past medical history of, [place], diabetes, hyperlipidemia, hypertension, Coumadin for blood clots. Patient sent from PCP office to emergency room for generalized weakness evaluation. Patient presents complaining of 2 weeks nausea, SOB, weakness, melanic dark stools. Patient states he also eats beets at least 5 quarts in the past 2 weeks. Patient guaiac positive in emergency room with hemoglobin 6.9. Given 1 unit packed RBCs in emergency room. Admits to blurring with vision and profound weakness worsening last night. States he feels better after receiving 50% of blood transfusion in emergency room. Denies ever having EGD/colonoscopy. Admits to Cologuard home stool test 6 months ago which was normal. CTA abdomen/pelvis done in emergency room showed no signs of acute bleeding. Denies abdominal pain, atrial fibrillation, chest pain, palpitations, sick contacts, fevers, chills, recent travel, headache. Denies history of previous GI bleeding issues. INR checked in PCP office 1.7 today. INR in emergency room less than 1.5. [facility] Disclaimer: The information contained in this section may have been updated after the patient was seen, as this information can be updated by other users. Social History (Updated 03/28/22 @ 16:22 by Altaf Zavala MD) Smoking Status: Never smoker alcohol intake: never current occupational status: employed Travel in the last 8 weeks: None Review of Systems Review of Systems Review of systems:: pertinent systems reviewed and negative unless documented below Eyes Eyes: Reports system reviewed and no additional complaints, except as documented Meds Home Medications and Allergies Home Medications Medication Instructions Recorded Confirmed Type albuterol sulfate 90 mcg/actuation 1 inh inhalation DAILY 02/05/24 02/05/24 History breath activated powder inhaler allopurinol 300 mg tablet 300 mg PO DAILY 02/05/24 02/05/24 History benazepril 20 20 - 25 tab PO DAILY 02/05/24 02/05/24 History mg-hydrochlorothiazide 25 mg tablet empagliflozin 10 mg tablet 10 mg PO DAILY 02/05/24 02/05/24 History (Jardiance) fluticasone furoate 100 1 inh inhalation DAILY 02/05/24 02/05/24 History mcg-vilanterol 25 mcg/dose inhalation powder (Emilyo Ellipta) montelukast 10 mg tablet 10 mg PO DAILY 02/05/24 02/05/24 History sitagliptin phosphate 25 mg tablet 25 mg PO DAILY 02/05/24 02/05/24 History (Januvia) verapamil 180 mg tablet,extended 180 mg PO DAILY 02/05/24 02/05/24 History release warfarin 4 mg tablet 7 mg PO DAILY 02/05/24 02/05/24 History New Prescriptions to Start Prescriptions: Allergies Allergy/AdvReac Type Severity Reaction Status Date / Time amoxicillin [From AUGMENTIN] Allergy Mild Verified 08/21/17 17:34 clavulanic acid Allergy Mild Verified 08/21/17 17:34 [From AUGMENTIN] ibuprofen [IBUPROFEN] Allergy Unknown Verified 08/21/17 17:34 naproxen [From ALEVE] Allergy Unknown Verified 08/21/17 17:34 Exam Data for Last 24 hours Vital signs and Labs for Last 24 Hours: Temp Pulse Resp BP Pulse Ox O2 Del Method 98.0 F 70 18 98/69 L 98 Room Air 02/05/24 17:28 02/05/24 17:28 02/05/24 17:28 02/05/24 17:28 02/05/24 17:15 02/05/24 18:34 Laboratory Results - last 24 hr 02/05/24 10:40: WBC 14.3 H, RBC 2.20 L, Hgb 6.9 L, Hct 21.9 L, MCV 99.8 H, MCH 31.5 H, MCHC 31.5 L, RDW 19.4 H, Plt Count 352, MPV 8.6, Neut % (Auto) 27.6 L, Lymph % (Auto) 11.4, [place] % (Auto) 60.2 H, Eos % (Auto) 0.4, Baso % (Auto) 0.4, Neut # (Auto) 4.0, Lymph # (Auto) 1.6, [place] # (Auto) 8.6 H, Eos # (Auto) 0.1, Baso # (Auto) 0.1, Total Counted 100, Neutrophils % (Manual) 88 H, Lymphocytes % (Manual) 9 L, Monocytes % (Manual) 3, Platelet Estimate Normal, Hypochromasia 2+, Anisocytosis 3+, Macrocytosis 2+, PT 15.8 H, INR 1.47 H, Sodium 137, Potassium 4.8, Chloride 109 H, Carbon Dioxide 19 L, Anion Gap 13.8, BUN 28 H, Creatinine 1.60 H, Estimated Creat Clear 60, Estimated GFR 43 L, Est GFR ( Amer) 52 L, Glucose 161 H, Calcium 8.8, Total Bilirubin 0.5, AST 28, ALT 32, Alkaline Phosphatase 88, Troponin I < 0.01, NT-Pro-B Natriuret Pep 570 H, Total Protein 6.3, Albumin 3.8, Globulin 2.5, Albumin/Globulin Ratio 1.5, Blood Type Confirm A Negative 02/05/24 12:29: Blood Type A Negative, Antibody Screen Negative, Crossmatch (AHG) See Detail 02/05/24 12:44: Stool Occult Blood Positive A 02/05/24 17:35: Troponin I < 0.01 02/05/24 : Troponin I < 0.01 I & O for Last 24 hours: Intake & Output 02/02/24 02/03/24 02/04/24 02/05/24 23:59 23:59 23:59 23:59 Weight 95.878 kg Radiology Reports for the Last 24 Hours: Ordering Physician: Shar Hu DO Date of Service: 02/05/24 Procedure(s): CT angio abdomen pelvis Accession Number(s): [id number] cc: Shar Hu DO; Dayana Harris MD; Soy Loco MD~ PROCEDURE INFORMATION: Exam: CTA Abdomen and Pelvis With Contrast Exam date and time: 02/05/2024 4:19 PM Age: 68 years old Clinical indication: Other: Possible gi bleeding TECHNIQUE: Imaging protocol: Computed tomographic angiography of the abdomen and pelvis with contrast. Exam focused on the arteries. 3D rendering (Not supervised by radiologist): MIP and/or 3D reconstructed images were created by the technologist. Radiation optimization: All CT scans at this facility use at least one of these dose optimization techniques: automated exposure control; mA and/or kV adjustment per patient size (includes targeted exams where dose is matched to clinical indication); or iterative reconstruction. Contrast material: ISOVUE; Contrast volume: 100 ml; Contrast route: INTRAVENOUS (IV); COMPARISON: CT ANGIO ABDOMEN/FEMORAL 09/06/2021 2:04 PM FINDINGS: Limitations: Streak artifact from hip hardware limits visualization of pelvic structures. Aorta: Moderate amount of calcific arterial atherosclerosis throughout the aorta. No abdominal aortic aneurysm or dissection. 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 No significant stenosis in the celiac trunk and branches. No aneurysm or dissection. Inferior mesenteric artery is patent. Renal arteries: Mild (less than 50%) ostial stenosis in the bilateral main renal arteries secondary to atherosclerotic plaque. No aneurysm or dissection. Right iliac arteries: No aneurysm, occlusion, or significant stenosis. Left iliac arteries: No aneurysm, occlusion, or significant stenosis. Liver: Unremarkable. Gallbladder and biliary ducts: Unremarkable. Pancreas: Unremarkable. Spleen: Unremarkable. Adrenal glands: Unremarkable. Kidneys and ureters: No renal or ureteral stones. No hydronephrosis. Stomach and bowel: Few scattered colonic diverticula without evidence of diverticulitis. Appendix: Appendix is visualized and is normal. Intraperitoneal space: No free fluid. No pneumoperitoneum. Lymph nodes: Unremarkable. Urinary bladder: Unremarkable. Reproductive: Prostate is enlarged, measuring approximately 5.5 cm in transverse axis. Bones/joints: Post-operative changes of prior right total hip arthroplasty. Multi-level bridging or beaked disc osteophytes in the lower thoracic spine compatible with diffuse idiopathic skeletal hyperostosis (DISH). Soft tissues: Small fat containing umbilical hernia, unchanged. IMPRESSION: 1. No evidence of gastrointestinal bleeding or other acute intra-abdominal pathology. 2. 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 3. Mild (less than 50%) ostial stenosis in the bilateral main renal arteries secondary to atherosclerotic plaque. 4. Enlarged prostate. 5. Additional non-acute ancillary findings are detailed above. *Routine HEENT Exam Head: Present normocephalic Eye: Present EOMI and normal accommodation ENT: Present mucous membranes moist *Routine Neck Exam Neck: Present supple and full ROM *Routine Respiratory Exam Respiratory: Present CTA bilaterally *Routine Cardiovascular Exam Cardiovascular: Present RRR and tachycardia *Routine Abdominal Exam Abdominal: Present soft and normoactive bowel sounds *Routine Rectal Exam Rectal:: deferred *Routine Genitalia Exam Genitalia:: deferred *Routine Extremities Exam Extremities: Present full ROM and normal capillary refill *Routine Skin Exam Skin: Present intact and warm *Routine Neurological Exam Neurological: Present alert, oriented X3 and normal reflexes Assessment and Plan *Assessment and plan (1) Blood in stool: Status: Acute Category: Medical Code(s): K92.1 - Melena (2) Anemia: Status: Acute Category: Medical Code(s): D64.9 - Anemia, unspecified (3) ANTHONY (acute kidney injury): Status: Acute Category: Medical Code(s): N17.9 - Acute kidney failure, unspecified Plan Symptomatic anemia: ? Spoke with general surgery who plans to evaluate patient for potential EGD in AM. Given 1 unit packed RBCs in emergency room. Will order additional 1 unit packed RBCs. Check H&H every 6 x 3. Clears till midnight then n.p.o. Protonix 80 gtt. Vitamin K 2.5 subcu x 1 GA: Continue home management Hyperlipidemia: Continue home management Hypertension: Continue home management but will hold antihypertensive medicines the patient hypotensive Diabetes: Sliding scale insulin, ACH S Accu-Cheks PPx: SCDs, Protonix IV CODE STATUS full Clears until midnight then n.p.o.FEN:
[2024-02-05] MEDS: PHYTONADIONE 10 MG/ML 2.5 MG SQ (19:14)
[2024-02-05] MEDS: PANTOPRAZOLE SODIUM 80 MG in 0.9 % SODIUM CHLORIDE 100 ML 10 MG IV (19:33)
[2024-02-05 19:45] LABS: Hematocrit 24.4 % (42.0-52.0)
[2024-02-05 20:06] LABS: Hemoglobin 7.8 g/dL (14.1-18.0)
[2024-02-05 20:19] LABS: POC Glucose,Bedside 138 (70-110)
--- NOTE | 2024-02-05 20:40 | PC.NURSE ---
Bayron Kim APRN on floor evaluating patient and was made aware of most recent H&H. Instructed to hold 2nd unit of blood.
[2024-02-06] VITALS (28 sets, daily range): BP systolic 76–132; BP diastolic 43–68; PULSE 61–80; RESP 12–20; TEMP 36.3–36.8; O2SAT 92–100; BMI 28.6
[2024-02-06 01:23] LABS: Hematocrit 21.1 % (42.0-52.0)
[2024-02-06 01:27] LABS: Hemoglobin 6.9 g/dL (14.1-18.0)
--- NOTE | 2024-02-06 01:34 | PC.NURSE ---
0125 - Lab called to report critical H&H 0126 - Bayron Kim APRN notified of critical labs. Given orders to administer 2nd unit of blood now 0128 - Spoke with Krista at lab. She stated there was no 2nd unit 'worked up' and that she would begin working on it now. Will call when 2nd unit is available for pickup.
[2024-02-06] MEDS: 0.9 % SODIUM CHLORIDE 250 ML 25 ML IV ×2 (02:45→13:30)
[2024-02-06 05:00] LABS: Basophils % 0.3 % (0.1-2.0); Eosinophils # 0.2 K/mm3 (0.0-0.4); Eosinophils % 1.8 % (0.1-12.0); Lymphocytes # 1.4 K/mm3 (0.7-4.5); Lymphocytes % 15.2 % (10-50); Mean Corpuscular HGB Conc 32.2 g/dL (31.8-35.4); Mean Corpuscular Hemoglobin 32.3 pg (27.0-31.2); Mean Corpuscular Volume 100.2 fl (80-94); Mean Platelet Volume 9.7 fl (7.4-10.4); Monocytes # 0.4 K/mm3 (0.1-1.0); Monocytes % 4.6 % (1.7-9.3); Neutrophils # 7.2 K/mm3 (1.8-7.8); Platelet Count 224 K/mm3 (142-424); Red Blood Count 2.05 M/mm3 (4.60-6.20); Red Cell Distribution Width 18.4 % (11.5-17.5); White Blood Count 9.2 K/mm3 (4.8-10.8)
[2024-02-06 05:04] LABS: Chloride 110 mmol/L (98-107); Sodium 134 mmol/L (136-145)
[2024-02-06 05:05] LABS: Hemoglobin 6.6 g/dL (14.1-18.0); Potassium 4.4 mmoL/L (3.5-5.1)
[2024-02-06 05:06] LABS: Hematocrit 20.6 % (42.0-52.0)
[2024-02-06 05:07] LABS: Anion Gap 6.4 mEq/L (5-15); Blood Urea Nitrogen 29 mg/dl (9-20); Carbon Dioxide 22 mmol/L (22.0-30.0); Creatinine Clearance Estimated 59 mL/min (50-200); Estimated Glomerular Filt Rate 43 ml/min (>60); GFR (African American) 52 ML/MIN (>60)
[2024-02-06 05:08] LABS: Calcium 7.9 mg/dl (8.4-10.2); Glucose 106 mg/dl (74-100); Magnesium 1.5 mg/dl (1.6-2.3)
[2024-02-06 05:09] LABS: INR 1.44 (0.9-1.1); Prothrombin Time 15.6 seconds (10.1-12.5)
[2024-02-06] MEDS: PANTOPRAZOLE SODIUM 80 MG in 0.9 % SODIUM CHLORIDE 100 ML 10 MG IV (06:21)
[2024-02-06 06:33] LABS: POC Glucose,Bedside 125 (70-110)
--- NOTE | 2024-02-06 06:35 | PC.NURSE ---
0334- Bayronbryan Kim APRN notified of hypotension and MAP staying between 57-61. Orders to stop infusion immediately, notify blood bank, and administer 500ml bolus of NS. 0340- Tried to call blood bank and main lab, no answer 0345- Bayron to floor to evaluate patient 0350- Tried to call blood bank and main lab again, no answer. Saw baked and graphite inspector in [place] and notified them of patient transfusion reaction per Bayron. Administered bolus and monitored patients vital signs and respiratory status closely. Called Bayron at 0505 to notify him blood pressures and MAP was not improving much. No new orders given and was told to monitor patient approximately every 20 mins.
--- NOTE | 2024-02-06 06:41 | P.CONS_ITS ---
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 Chris Loco who was sent from primary care provider's office to the emergency department for generalized weakness. He has had 2 weeks of nausea with shortness of air weakness and melanic stools. He had some visual changes. Emergency department evaluation revealed a hemoglobin of 6.9. He was given a unit of packed red blood cells in the emergency department with symptomatic improvement. No prior history of ulcers. No history of EGD or colonoscopy. Apparently had a Cologuard test about 6 months ago which was normal. CT angiogram in the emergency department revealed no acute bleeding. INR in the emergency department was less than 1.5. Posttransfusion resulted in hemoglobin of 7.8. His hemoglobin is 6.6 this morning. He denies hematochezia. Stool for occult blood is positive. [facility] Disclaimer: The information contained in this section may have been updated after the patient was seen, as this information can be updated by other users. Social History (Updated 03/28/22 @ 16:22 by Altaf Zavala MD) Smoking Status: Never smoker alcohol intake: never current occupational status: employed Travel in the last 8 weeks: None Meds Home Medications and Allergies Home Medications Medication Instructions Recorded Confirmed Type albuterol sulfate 90 mcg/actuation 1 inh inhalation DAILY 02/05/24 02/05/24 History breath activated powder inhaler allopurinol 300 mg tablet 300 mg PO DAILY 02/05/24 02/05/24 History benazepril 20 20 - 25 tab PO DAILY 02/05/24 02/05/24 History mg-hydrochlorothiazide 25 mg tablet empagliflozin 10 mg tablet 10 mg PO DAILY 02/05/24 02/05/24 History (Jardiance) fluticasone furoate 100 1 inh inhalation DAILY 02/05/24 02/05/24 History mcg-vilanterol 25 mcg/dose inhalation powder (Breo Ellipta) montelukast 10 mg tablet 10 mg PO DAILY 02/05/24 02/05/24 History sitagliptin phosphate 25 mg tablet 25 mg PO DAILY 02/05/24 02/05/24 History (Januvia) verapamil 180 mg tablet,extended 180 mg PO DAILY 02/05/24 02/05/24 History release warfarin 4 mg tablet 7 mg PO DAILY 02/05/24 02/05/24 History New Prescriptions to Start Prescriptions: Allergies Allergy/AdvReac Type Severity Reaction Status Date / Time amoxicillin [From AUGMENTIN] Allergy Mild Verified 08/21/17 17:34 clavulanic acid Allergy Mild Verified 08/21/17 17:34 [From AUGMENTIN] ibuprofen [IBUPROFEN] Allergy Unknown Verified 08/21/17 17:34 naproxen [From ALEVE] Allergy Unknown Verified 08/21/17 17:34 Exam (Inpt) Vital signs and Labs for Last 24 Hours: Temp Pulse Resp BP Pulse Ox O2 Del Method 97.4 F L 80 16 91/50 L 99 Room Air 02/06/24 04:00 02/06/24 04:00 02/06/24 04:00 02/06/24 04:00 02/06/24 04:00 02/06/24 05:00 Laboratory Results - last 24 hr 02/05/24 10:40: WBC 14.3 H, RBC 2.20 L, Hgb 6.9 L, Hct 21.9 L, MCV 99.8 H, MCH 31.5 H, MCHC 31.5 L, RDW 19.4 H, Plt Count 352, MPV 8.6, Neut % (Auto) 27.6 L, Lymph % (Auto) 11.4, [place] % (Auto) 60.2 H, Eos % (Auto) 0.4, Baso % (Auto) 0.4, Neut # (Auto) 4.0, Lymph # (Auto) 1.6, [place] # (Auto) 8.6 H, Eos # (Auto) 0.1, Baso # (Auto) 0.1, Total Counted 100, Neutrophils % (Manual) 88 H, Lymphocytes % (Manual) 9 L, Monocytes % (Manual) 3, Platelet Estimate Normal, Hypochromasia 2+, Anisocytosis 3+, Macrocytosis 2+, PT 15.8 H, INR 1.47 H, Sodium 137, Potassium 4.8, Chloride 109 H, Carbon Dioxide 19 L, Anion Gap 13.8, BUN 28 H, C reatinine 1.60 H, Estimated Creat Clear 60, Estimated GFR 43 L, Est GFR ( Amer) 52 L, Glucose 161 H, Calcium 8.8, Total Bilirubin 0.5, AST 28, ALT 32, Alkaline Phosphatase 88, Troponin I < 0.01, NT-Pro-B Natriuret Pep 570 H, Total Protein 6.3, Albumin 3.8, Globulin 2.5, Albumin/Globulin Ratio 1.5, Blood Type Confirm A Negative 02/05/24 12:29: Blood Type A Negative, Antibody Screen Negative, Crossmatch (AHG) See Detail 02/05/24 12:44: Stool Occult Blood Positive A 02/05/24 17:35: Troponin I < 0.01 02/05/24 19:29: Hgb 7.8 L D, Hct 24.4 L 02/05/24 20:11: POC Glucose 138 H 02/05/24 : Troponin I < 0.01 02/06/24 01:10: Hgb 6.9 L, Hct 21.1 L 02/06/24 04:45: WBC 9.2 D, RBC 2.05 L, Hgb 6.6 L*, Hct 20.6 L*, MCV 100.2 H, M CH 32.3 H, MCHC 32.2, RDW 18.4 H, Plt Count 224 D, MPV 9.7, Neut % (Auto) 78.0, Lymph % (Auto) 15.2, [place] % (Auto) 4.6, Eos % (Auto) 1.8, Baso % (Auto) 0.3, Neut # (Auto) 7.2, Lymph # (Auto) 1.4, [place] # (Auto) 0.4, Eos # (Auto) 0.2, Baso # (Auto) 0.0, PT 15.6 H, INR 1.44 H, Sodium 134 L, Potassium 4.4, Chloride 110 H , Carbon Dioxide 22, Anion Gap 6.4, BUN 29 H, Creatinine 1.60 H, Estimated Creat Clear 59, Estimated GFR 43 L, Est GFR ( Amer) 52 L, Glucose 106 H D, C alcium 7.9 L, Magnesium 1.5 L 02/06/24 06:26: POC Glucose 125 H I & O for Labs for Last 24 Hours: Intake & Output 07/02/04/24 02/05/24 02/06/24 11:59 11:59 11:59 11:59 Intake Total 0 / 0 Output Total 0 / 0 Balance 0 / 0 Weight 214 lb 211 lb 5.997 oz Constitutional: no acute distress GI: Present soft Results Labs 02/06/24 04:45 02/06/24 04:45 Labs: Laboratory Results - last 24 hr 02/05/24 10:40: WBC 14.3 H, RBC 2.20 L, Hgb 6.9 L, Hct 21.9 L, MCV 99.8 H, MCH 31.5 H, MCHC 31.5 L, RDW 19.4 H, Plt Count 352, MPV 8.6, Neut % (Auto) 27.6 L, Lymph % (Auto) 11.4, [place] % (Auto) 60.2 H, Eos % (Auto) 0.4, Baso % (Auto) 0.4, Neut # (Auto) 4.0, Lymph # (Auto) 1.6, [place] # (Auto) 8.6 H, Eos # (Auto) 0.1, Baso # (Auto) 0.1, Total Counted 100, Neutrophils % (Manual) 88 H, Lymphocytes % (Manual) 9 L, Monocytes % (Manual) 3, Platelet Estimate Normal, Hypochromasia 2+, Anisocytosis 3+, Macrocytosis 2+, PT 15.8 H, INR 1.47 H, Sodium 137, Potassium 4.8, Chloride 109 H, Carbon Dioxide 19 L, Anion Gap 13.8, BUN 28 H, C reatinine 1.60 H, Estimated Creat Clear 60, Estimated GFR 43 L, Est GFR ( Amer) 52 L, Glucose 161 H, Calcium 8.8, Total Bilirubin 0.5, AST 28, ALT 32, Alkaline Phosphatase 88, Troponin I < 0.01, NT-Pro-B Natriuret Pep 570 H, Total Protein 6.3, Albumin 3.8, Globulin 2.5, Albumin/Globulin Ratio 1.5, Blood Type Confirm A Negative 02/05/24 12:29: Blood Type A Negative, Antibody Screen Negative, Crossmatch (AHG) See Detail 02/05/24 12:44: Stool Occult Blood Positive A 02/05/24 17:35: Troponin I < 0.01 02/05/24 19:29: Hgb 7.8 L D, Hct 24.4 L 02/05/24 20:11: POC Glucose 138 H 02/05/24 : Troponin I < 0.01 02/06/24 01:10: Hgb 6.9 L, Hct 21.1 L 02/06/24 04:45: WBC 9.2 D, RBC 2.05 L, Hgb 6.6 L*, Hct 20.6 L*, MCV 100.2 H, M CH 32.3 H, MCHC 32.2, RDW 18.4 H, Plt Count 224 D, MPV 9.7, Neut % (Auto) 78.0, Lymph % (Auto) 15.2, [place] % (Auto) 4.6, Eos % (Auto) 1.8, Baso % (Auto) 0.3, Neut # (Auto) 7.2, Lymph # (Auto) 1.4, [place] # (Auto) 0.4, Eos # (Auto) 0.2, Baso # (Auto) 0.0, PT 15.6 H, INR 1.44 H, Sodium 134 L, Potassium 4.4, Chloride 110 H , Carbon Dioxide 22, Anion Gap 6.4, BUN 29 H, Creatinine 1.60 H, Estimated Creat Clear 59, Estimated GFR 43 L, Est GFR ( Amer) 52 L, Glucose 106 H D, C alcium 7.9 L, Magnesium 1.5 L 02/06/24 06:26: POC Glucose 125 H Assessment and Plan *Assessment and plan (1) Anemia: Status: Acute Category: Medical Code(s): D64.9 - Anemia, unspecified Plan Patient has evidence of GI blood loss with symptomatic anemia. He shown further decrease in hemoglobin after transfusion. He does need relatively urgent EGD. I will see if he can get additional blood transfusion and plan for EGD for diagnostic and potentially therapeutic purposes.
--- NOTE | 2024-02-06 06:41 | PC.NURSE ---
0505- Notified Bayron Kim APRN of critical H&H, no new orders given.
[2024-02-06] MEDS: MAGNESIUM SULFATE IN WATER 2 GM/50 ML PIGGYBACK IV (08:07)
[2024-02-06 08:10] LABS: POC Glucose,Bedside 130 (70-110)
--- NOTE | 2024-02-06 09:21 | HMH.PHAINT1 ---
Pharmacy Intervention Comments: MEDICATION RECONCILIATION COMPLETED ON PATIENT USING EXTERNAL FILL HISTORY FROM PHARMACY AND PATIENT INTERVIEW FOR WARFARIN DOSE. -PEREZ GARCIA, CHEKOD
--- NOTE | 2024-02-06 11:32 | PC.NURSE ---
pt off the floor to surgery dept. for scheduled EGD.
--- NOTE | 2024-02-06 11:43 | EXP.ANES.CKL ---
[facility] Disclaimer: The information contained in this section may have been updated after the patient was seen, as this information can be updated by other users. Social History (Updated 03/28/22 @ 16:22 by Altaf Zavala MD) Smoking Status: Never smoker alcohol intake: never substance use type: denies use current occupational status: employed Travel in the last 8 weeks: None [facility] Anesthesia Checklist Patient Identification Patient Identification: Arm Band, Family and Verbal (Name & ) Structural Data Admitted From: Inpatient ( [id number]) Planned Operative Procedure/s: EGD Consent for Planned Operative Procedure(s) Verified: Yes Verified Documents: Surgical Consent and History and Physical NPO Status Verified Time NPO: 20:00 Chart Verification Results Verified: CBC, BMP, PT, PTT, INR, ECG and Chest Xray Additional verifications Fingerstick Blood Glucose: 130 Patient : No Anesthesia Reactions: No Hx Blood Transfusions: Yes Cardiovascular Assessment Heart Sounds: S1 & S2 Pulse Rhythm: Irregular Peripheral Edema: No Airway Assessment Mallampati Score:: Class III C-Spine Mobility Assessed: Yes (FROM) TMJ Mobility Assessed: Yes Dentition: Good Dentition (Nothing loose per pt.) Neurological Assessment Level of Consciousness: Awake, Alert, Appropriate and Follows Commands Hx Seizures: No Numbness or tingling in extremities: No Anesthesia Plan Anesthesia Risk discussed: Yes Anesthesia Plan: Verified ASA Class: III Anesthesia Type: MAC
--- NOTE | 2024-02-06 12:06 | HMH.SCOPE ---
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 Chris Loco who was sent from primary care provider's office to the emergency department for generalized weakness. He has had 2 weeks of nausea with shortness of air weakness and melanic stools. He had some visual changes. Emergency department evaluation revealed a hemoglobin of 6.9. He was given a unit of packed red blood cells in the emergency department with symptomatic improvement. No prior history of ulcers. No history of EGD or colonoscopy. Apparently had a Cologuard test about 6 months ago which was normal. CT angiogram in the emergency department revealed no acute bleeding. INR in the emergency department was less than 1.5. Posttransfusion resulted in hemoglobin of 7.8. His hemoglobin is 6.6 this morning. He denies hematochezia. Stool for occult blood is positive. Apparently the patient's sister had with colon cancer. . Performing Provider:: Leonel Dixon MD Referring Provider:: Chris Loco MD Sedation:: MAC sedation Procedure:: Patient history was obtained and appropriate physical examination was performed. Patient's medications and allergies were reviewed. Informed consent was obtained after explaining the benefits, alternatives, and risks of the procedure including, but not limited to, bleeding, perforation, missed lesions, and adverse reaction to anesthesia medications. Patient was transported to endoscopy procedure room. Patient was connected to monitoring devices. Throughout the procedure the patient's blood pressure, pulse, and oxygen saturations were monitored continuously. Patient identification and planned procedure were verified by the staff. Patient was positioned in lateral decubitus position. Olympus endoscope was inserted via the oropharynx. There was some minor cricopharyngeal spasm. Minimal tortuosity to the esophagus. Gastroesophageal junction was encountered at 38 cm. There were beginnings of Schatzki's ring, nonobstructing. Stomach was cannulated and insufflated. Retroflexion revealed a small sliding hiatal hernia measuring about 2 cm. There is some diffuse gastropathy/gastritis. In the prepyloric location there were a couple of mildly inflamed punctate ulcers without stigmata of recent bleeding. Pylorus was traversed. There was some duodenitis with a tiny erosion in the duodenal bulb. There appeared to be some edematous mucosa in the second portion of the duodenum and careful inspection was repeatedly carried out to ensure that this was not the edge of an ulcer. No definite ulcer was noted. Endoscope was advanced into the distal duodenum which appeared unremarkable. There was no evidence of any old blood within the stomach or duodenum. Endoscope was withdrawn into the stomach and it was desufflated. Endoscope was withdrawn. . Findings:: Cricopharyngeal spasm Gastroesophageal junction at 38 cm from the incisors Nonobstructing beginning of Schatzki's ring Small 2 cm hiatal hernia Mild nonerosive diffuse gastritis 2 small somewhat inflamed nonbleeding prepyloric ulcers without stigmata of recent bleeding Duodenitis with erosion in the duodenal bulb Recommendations:: Continue proton pump inhibitors. Transfuse to appropriate hemoglobin. Would not discharge until hemoglobin shows stability. Follow-up EGD and colonoscopy as an outpatient. Hold anticoagulation if possible. Complications:: None immediately apparent Estimated blood obtained (mL): 0 Colonoscopy Component Colonoscopy Component Was a colonoscopy performed during today's procedure?: No
--- NOTE | 2024-02-06 12:20 | P.PNANES_ITS ---
[facility] Anesthesia Record Part I Anesthesia Record I Intake, IV Amount: 400 Hydration: Adequate Estimated blood loss (mL): 0 Urine output (mL): 0 Blood Products used (#): none Blood Pressure: 96/55 SaO2: 97 Pulse Rate: 78 Airway Patency: Patent Respiratory Rate: 16 Temperature: 98.2 F Patient is:: Drowsy and Stable Stable to PACU at:: 12:15
--- NOTE | 2024-02-06 12:33 | PC.NURSE ---
pt arrived back to floor from procedure via stretcher @[id number]
[2024-02-06 13:24] LABS: Hemoglobin 6.7 g/dL (14.1-18.0)
[2024-02-06 13:25] LABS: Hematocrit 20.6 % (42.0-52.0)
--- NOTE | 2024-02-06 15:28 | P.PN_ITS ---
Subjective *Date: 02/06/24 *Time: 15:33 Interval history: Patient feeling better this morning. Denies any black stools overnight. No chest pain or shortness of breath. No nausea or vomiting. N.p.o. for EGD Medical Exam Vital signs and Labs for Last 24 Hours: Vital Signs Temp Pulse Pulse Resp BP BP Pulse Ox 02/06/24 15:00 02/06/24 14:30 98.0 F 75 17 90/61 L 97 02/06/24 14:15 98.0 F 72 17 82/43 L 97 02/06/24 14:00 98.1 F 72 17 85/62 L 98 02/06/24 13:45 97.7 F 79 18 89/58 L 97 02/06/24 13:40 98.0 F 78 17 93/59 L 99 02/06/24 13:35 98.1 F 78 18 100/59 L 97 02/06/24 13:30 98.0 F 77 18 104/64 L 97 02/06/24 13:20 97.9 F 69 18 101/60 L 97 02/06/24 12:50 02/06/24 12:30 70 14 102/59 L 94 L 02/06/24 12:21 98.2 F 78 16 96/55 L 02/06/24 12:20 66 14 99/60 L 94 L 02/06/24 12:10 98.2 F 77 12 96/55 L 97 02/06/24 11:51 02/06/24 10:48 02/06/24 08:42 02/06/24 08:00 02/06/24 08:00 97.9 F 61 20 83/48 L 97 02/06/24 07:00 02/06/24 05:00 02/06/24 04:00 97.4 F L 80 16 91/50 L 99 02/06/24 04:00 64 02/06/24 03:30 97.5 F L 65 16 80/48 L 94 L 02/06/24 03:30 97.5 F L 65 16 80/48 L 94 L 02/06/24 03:15 97.6 F 68 16 76/48 L 92 L 02/06/24 03:00 02/06/24 03:00 97.6 F 63 16 84/48 L 94 L 02/06/24 02:55 97.4 F L 71 16 81/51 L 94 L 02/06/24 02:50 97.9 F 65 16 81/47 L 94 L 02/06/24 02:48 97.9 F 66 16 87/51 L 94 L 02/06/24 02:44 97.7 F 66 16 114/66 97 02/06/24 01:00 02/06/24 00:28 97.5 F L 66 18 98/56 L 100 02/06/24 00:00 80 02/05/24 23:00 02/05/24 21:00 02/05/24 20:14 97.6 F 80 18 101/65 L 91 L 02/05/24 20:00 75 02/05/24 19:33 91 L 02/05/24 19:13 97.6 F 80 18 101/65 L 91 L 02/05/24 18:34 02/05/24 18:19 02/05/24 18:13 98.0 F 75 18 120/73 98 02/05/24 17:28 98.0 F 70 18 98/69 L 02/05/24 17:15 75 115/62 98 02/05/24 17:10 82 121/87 98 02/05/24 17:04 98.0 F 73 18 120/78 02/05/24 17:01 82 120/78 92 L 02/05/24 16:55 74 108/65 L 97 02/05/24 16:50 74 114/60 97 02/05/24 16:45 77 119/66 97 02/05/24 16:41 69 110/64 98 02/05/24 16:35 74 118/70 98 02/05/24 16:30 72 105/57 L 99 02/05/24 16:28 97.4 F L 18 110/80 98 02/05/24 16:27 75 100/66 L 99 02/05/24 16:13 97.4 F L 65 18 105/85 L 98 02/05/24 16:10 63 109/71 L 100 02/05/24 16:05 65 117/73 100 02/05/24 16:00 64 116/75 100 02/05/24 15:58 97.4 F L 63 18 100/86 L 100 02/05/24 15:50 68 103/67 L 100 02/05/24 15:45 65 108/72 L 100 02/05/24 15:43 97.6 F 62 18 108/72 L 100 02/05/24 15:41 72 99/67 L 100 02/05/24 15:38 97.6 F 63 18 99/67 L 91 L 02/05/24 15:35 64 93/57 L 100 02/05/24 15:34 65 90/70 L 98 02/05/24 15:33 97.6 F 63 18 93/57 L 95 02/05/24 15:31 66 120/86 99 O2 Del Method O2 Flow Rate 02/06/24 15:00 Room Air 02/06/24 14:30 02/06/24 14:15 02/06/24 14:00 02/06/24 13:45 02/06/24 13:40 02/06/24 13:35 02/06/24 13:30 02/06/24 13:20 02/06/24 12:50 Room Air 02/06/24 12:30 Room Air 02/06/24 12:21 02/06/24 12:20 Room Air 02/06/24 12:10 Room Air 02/06/24 11:51 Nasal Cannula 5 02/06/24 10:48 Room Air 02/06/24 08:42 Room Air 02/06/24 08:00 Room Air 02/06/24 08:00 Room Air 02/06/24 07:00 Room Air 02/06/24 05:00 Room Air 02/06/24 04:00 Room Air 02/06/24 04:00 02/06/24 03:30 02/06/24 03:30 02/06/24 03:15 02/06/24 03:00 Room Air 02/06/24 03:00 02/06/24 02:55 02/06/24 02:50 02/06/24 02:48 02/06/24 02:44 02/06/24 01:00 Room Air 02/06/24 00:28 Room Air 02/06/24 00:00 02/05/24 23:00 Room Air 02/05/24 21:00 Room Air 02/05/24 20:14 Room Air 02/05/24 20:00 02/05/24 19:33 Room Air 02/05/24 19:13 02/05/24 18:34 Room Air 02/05/24 18:19 Room Air 02/05/24 18:13 02/05/24 17:28 02/05/24 17:15 02/05/24 17:10 02/05/24 17:04 Room Air 02/05/24 17:01 02/05/24 16:55 02/05/24 16:50 02/05/24 16:45 02/05/24 16:41 02/05/24 16:35 02/05/24 16:30 02/05/24 16:28 02/05/24 16:27 02/05/24 16:13 02/05/24 16:10 Room Air 02/05/24 16:05 Room Air 02/05/24 16:00 Room Air 02/05/24 15:58 02/05/24 15:50 Room Air 02/05/24 15:45 Room Air 02/05/24 15:43 02/05/24 15:41 Room Air 02/05/24 15:38 02/05/24 15:35 Room Air 02/05/24 15:34 Room Air 02/05/24 15:33 02/05/24 15:31 Room Air Intake and Output 02/05/24 02/06/24 02/06/24 23:59 07:59 15:59 Intake Total 150 / 550 400 / 550 Output Total 0 / 400 400 / 400 Balance 150 / 150 0 / 150 Intake: Intake, Total IV Amount 400 / 400 Intake (Blood Product) Amt 150 / 150 0 / 150 Red Blood Cells Unit 150 / 150 [id number] Red Blood Cells Unit 0 / 0 [id number] Output: Output, Urine Amount 0 / 400 400 / 400 Other: Number of Unmeasured Voids 1 Weight 95.878 kg 95.878 kg Patient Weight 02/06/24 23:59 Weight 95.878 kg Laboratory Results - last 24 hr 02/05/24 10:40: PT 15.8 H, INR 1.47 H 02/05/24 12:29: Blood Type A Negative, Antibody Screen Negative, Crossmatch (AHG) See Detail 02/05/24 17:35: Troponin I < 0.01 02/05/24 19:29: Hgb 7.8 L D, Hct 24.4 L 02/05/24 20:11: POC Glucose 138 H 02/06/24 01:10: Hgb 6.9 L, Hct 21.1 L 02/06/24 04:45: WBC 9.2 D, RBC 2.05 L, Hgb 6.6 L*, Hct 20.6 L*, MCV 100.2 H, MCH 32.3 H, MCHC 32.2, RDW 18.4 H, Plt Count 224 D, MPV 9.7, Neut % (Auto) 78.0, Lymph % (Auto) 15.2, Taylor % (Auto) 4.6, Eos % (Auto) 1.8, Baso % (Auto) 0.3, Neut # (Auto) 7.2, Lymph # (Auto) 1.4, Taylor # (Auto) 0.4, Eos # (Auto) 0.2, Baso # (Auto) 0.0, PT 15.6 H, INR 1.44 H, Sodium 134 L, Potassium 4.4, Chloride 110 H, Carbon Dioxide 22, Anion Gap 6.4, BUN 29 H, Creatinine 1.60 H, Estimated Creat Clear 59, Estimated GFR 43 L, Est GFR ( Amer) 52 L, Glucose 106 H D , Calcium 7.9 L, Magnesium 1.5 L 02/06/24 04:55: Direct Antiglob Test Cancelled 02/06/24 04:55: Direct Antiglob Test Negative, Crossmatch (AHG) See Detail, Hemolysis Bld Bag Check Cancelled 02/06/24 04:55: Hemolysis Bld Bag Check No, Pre-Trans Blood Type Cancelled 02/06/24 04:55: Pre-Trans Blood Type A negative, Pre-Trans Vis Hemolysis Cancelled 02/06/24 04:55: Pre-Trans Vis Hemolysis No, Pre-Trans Antibody Scrn Cancelled 02/06/24 04:55: Pre-Trans Antibody Scrn Negative, Post-Trans Blood Type Cancelled 02/06/24 04:55: Post-Trans Blood Type A negative, Post-Tx Visible Hemolys Cancelled 02/06/24 04:55: Post-Tx Visible Hemolys No, Post-Trans Antibody Scrn Cancelled 02/06/24 04:55: Post-Trans Antibody Scrn Negative, Reaction Path Interpret Cancelled 02/06/24 04:55: Reaction Path Interpret Comment 02/06/24 06:26: POC Glucose 125 H 02/06/24 08:03: POC Glucose 130 H 02/06/24 13:07: Hgb 6.7 L*, Hct 20.6 L* I & O for Labs for Last 24 Hours: Intake & Output 02/03/24 02/04/24 02/05/24 02/06/24 23:59 23:59 23:59 23:59 Intake Total 550 / 550 Output Total 400 / 400 Balance 150 / 150 Weight 95.878 kg 95.878 kg Constitutional: Present no acute distress, average body habitus and cooperative Head: Present atraumatic and normocephalic ENT: Present normal exam Neck: Present normal inspection Respiratory: Present normal respiratory effort; Absent rhonchi, wheezes or crackles Cardiac: Present Reg Rate and Rhythm GI: Present soft and normal bowel sounds; Absent distention, tenderness or guarding Extremities: Present normal inspection and full ROM Skin: Present intact; Absent erythema Neuro: Present Grossly Intact, alert, awake, oriented x 3 and moves all extremities Assessment and Plan *Assessment and plan (1) Anemia: Status: Acute Category: Medical Code(s): D64.9 - Anemia, unspecified (2) GI bleed: Status: Acute Category: Medical Code(s): K92.2 - Gastrointestinal hemorrhage, unspecified (3) Blood in stool: Status: Acute Category: Medical Code(s): K92.1 - Melena (4) ANTHONY (acute kidney injury): Status: Acute Category: Medical Code(s): N17.9 - Acute kidney failure, unspecified (5) Chronic anticoagulation: Status: Chronic Category: Medical Code(s): Z79.01 - long term care pharmacist (current) use of anticoagulants (6) Hypertension: Status: Chronic Category: Medical Code(s): I10 - Essential (primary) hypertension Plan Mr. Sanchez is a 68-year-old male who presented with symptomatic anemia, concern for GI bleed. Positive stool guaiac. Monitored overnight. Currently on pantoprazole. Surgery consulted and perform EGD today. No further black stools since admission. Had reaction to second unit of blood being transfused overnight with hypotension. States he is feeling better this morning. Continues to require inpatient management. Problems addressed as follows: Symptomatic anemia: Suspected GI bleed ?Surgery consulted, discussed case today. Status post EGD. Found to have punctate ulcerations with no active bleeding. Concerned that these were the site of his blood loss however on his warfarin. Continue pantoprazole 40 mg IV twice daily -Transfusion threshold hemoglobin less than 7. Hemoglobin 6.6 on morning labs. Will transfuse additional unit of red blood cells today. -Holding warfarin. -Repeat CBC, CMP, magnesium ordered for the morning. Chronic anticoagulation: On warfarin for history of recurrent DVTs. Has not been tried on any other DOAC oral anticoagulant. Will hold anticoagulation at this time. Reevaluate resumption in 2 to 4 weeks -INR 1.4 this morning. -Status post vitamin K administration. Repeat INR ordered for the morning. [place]: Continue home management Hyperlipidemia: Continue home management Hypertension: Holding medications due to hypotension Diabetes: Sliding scale insulin, ACHS Accu-Cheks PPx: SCDs, Protonix IV CODE STATUS full Full liquid diet
--- NOTE | 2024-02-06 16:10 | PC.NURSE ---
pt received another unit of blood today. (see TAR) protonix drip was d/c and pt is now taking med. IVP. pt has had no complaints today. pt's blood pressure has still been running low.(MD aware) pt had EGD today, but there were no significant findings. pt remains on room air. no new orders at this time. call light within reach.
[2024-02-06 16:48] LABS: POC Glucose,Bedside 202 (70-110)
[2024-02-06 19:11] LABS: Hematocrit 25.2 % (42.0-52.0)
[2024-02-06] MEDS: SODIUM CHLORIDE 0.9% 10ML FLUSH SYRINGE 10 ML IV (20:28)
[2024-02-06] MEDS: PANTOPRAZOLE 40MG VIAL 40 MG IV (20:28)
[2024-02-06] MEDS: humaLOG 100 UNITS/ML 10ML VIAL (SSI) SQ (20:28)
[2024-02-06 21:12] LABS: POC Glucose,Bedside 166 (70-110)
[2024-02-07] VITALS: BP 111/54; PULSE 70; RESP 16; TEMP 36.8; O2SAT 97
[2024-02-07 00:20] VITALS: PULSE 74
[2024-02-07 04:00] VITALS: BP 116/65; PULSE 66; PULSE 76; RESP 16; TEMP 36.6; O2SAT 97; BMI 29.2
--- NOTE | 2024-02-07 04:36 | PC.NURSE ---
h/h after 3rd blood transfusion is 03/17. dr diego made aware. no new orders received.
[2024-02-07 05:51] LABS: POC Glucose,Bedside 128 (70-110)
[2024-02-07 06:21] LABS: Basophils % 0.3 % (0.1-2.0); Eosinophils # 0.3 K/mm3 (0.0-0.4); Eosinophils % 3.4 % (0.1-12.0); Hematocrit 25.1 % (42.0-52.0); Lymphocytes # 1.4 K/mm3 (0.7-4.5); Lymphocytes % 16.2 % (10-50); Mean Corpuscular HGB Conc 31.9 g/dL (31.8-35.4); Mean Corpuscular Hemoglobin 30.7 pg (27.0-31.2); Mean Corpuscular Volume 96.3 fl (80-94); Mean Platelet Volume 8.5 fl (7.4-10.4); Monocytes # 0.5 K/mm3 (0.1-1.0); Monocytes % 5.5 % (1.7-9.3); Neutrophils # 6.3 K/mm3 (1.8-7.8); Neutrophils % 74.6 % (37.0-80.0); Platelet Count 230 K/mm3 (142-424); Red Blood Count 2.61 M/mm3 (4.60-6.20); Red Cell Distribution Width 19.6 % (11.5-17.5); White Blood Count 8.4 K/mm3 (4.8-10.8)
[2024-02-07 06:28] LABS: INR 1.28 (0.9-1.1)
[2024-02-07 06:33] LABS: Anion Gap 9.3 mEq/L (5-15); Blood Urea Nitrogen 24 mg/dl (9-20); Calcium 8.6 mg/dl (8.4-10.2); Carbon Dioxide 23 mmol/L (22.0-30.0); Chloride 107 mmol/L (98-107); Creatinine Clearance Estimated 64 mL/min (50-200); Estimated Glomerular Filt Rate 46 ml/min (>60); GFR (African American) 56 ML/MIN (>60); Glucose 115 mg/dl (74-100); Magnesium 1.6 mg/dl (1.6-2.3); Potassium 4.3 mmoL/L (3.5-5.1); Sodium 135 mmol/L (136-145)
[2024-02-07 08:00] VITALS: BP 115/68; PULSE 70; PULSE 71; RESP 16; TEMP 36.5; O2SAT 98
--- NOTE | 2024-02-07 08:44 | P.PN_ITS ---
Subjective Patient reports: no new complaints and feels better Exam Data for Last 24 hours Vital signs and Labs for Last 24 Hours: Temp Pulse Resp BP Pulse Ox O2 Del Method O2 Flow Rate 97.8 F 76 16 116/65 97 Room Air 5 02/07/24 04:00 02/07/24 04:00 02/07/24 04:00 02/07/24 04:00 02/07/24 04:00 02/07/24 06:43 02/06/24 11:51 Laboratory Results - last 24 hr 02/05/24 12:29: Blood Type A Negative, Antibody Screen Negative, Crossmatch (AHG) See Detail 02/06/24 04:55: Direct Antiglob Test Cancelled 02/06/24 04:55: Direct Antiglob Test Negative, Crossmatch (AHG) See Detail, Hemolysis Bld Bag Check Cancelled 02/06/24 04:55: Hemolysis Bld Bag Check No, Pre-Trans Blood Type Cancelled 02/06/24 04:55: Pre-Trans Blood Type A negative, Pre-Trans Vis Hemolysis Cancelled 02/06/24 04:55: Pre-Trans Vis Hemolysis No, Pre-Trans Antibody Scrn Cancelled 02/06/24 04:55: Pre-Trans Antibody Scrn Negative, Post-Trans Blood Type Cancelled 02/06/24 04:55: Post-Trans Blood Type A negative, Post-Tx Visible Hemolys Cancelled 02/06/24 04:55: Post-Tx Visible Hemolys No, Post-Trans Antibody Scrn Cancelled 02/06/24 04:55: Post-Trans Antibody Scrn Negative, Reaction Path Interpret Cancelled 02/06/24 04:55: Reaction Path Interpret Comment 02/06/24 13:07: Hgb 6.7 L*, Hct 20.6 L* 02/06/24 16:40: POC Glucose 202 H 02/06/24 16:47: Hgb 8.0 L D, Hct 25.2 L 02/06/24 20:18: POC Glucose 166 H 02/07/24 05:43: POC Glucose 128 H 02/07/24 06:08: WBC 8.4, RBC 2.61 L D, Hgb 8.0 L, Hct 25.1 L, MCV 96.3 H, MCH 30.7, MCHC 31.9, RDW 19.6 H, Plt Count 230, MPV 8.5, Neut % (Auto) 74.6, Lymph % (Auto) 16.2, Cotton % (Auto) 5.5, Eos % (Auto) 3.4, Baso % (Auto) 0.3, Neut # (Auto) 6.3, Lymph # (Auto) 1.4, Cotton # (Auto) 0.5, Eos # (Auto) 0.3, Baso # (Auto) 0.0, PT 14.0 H, INR 1.28 H, Sodium 135 L, Potassium 4.3, Chloride 107, Carbon Dioxide 23, Anion Gap 9.3, BUN 24 H, Creatinine 1.50 H, Estimated Creat Clear 64, Estimated GFR 46 L, Est GFR ( Amer) 56 L, Glucose 115 H, Calcium 8.6, Magnesium 1.6 I & O for Last 24 hours: Intake & Output 02/04/24 02/05/24 02/06/24 02/07/24 11:59 11:59 11:59 11:59 Intake Total 150 / 150 1275 / 1275 Output Total 400 / 400 0 / 0 Balance -250 / -250 1275 / 1275 Weight 214 lb 211 lb 5.997 oz 216 lb 1.6 oz Constitutional Constitutional: no acute distress *Routine Respiratory Exam Respiratory: Absent respiratory distress *Routine Cardiovascular Exam Cardiovascular: Absent tachycardia Progress Note: A&P Assessment and plan (1) Anemia: Problem details: Likely secondary to prepyloric ulceration and/or duodenal bulb erosion Status: Acute Assessment and plan: No sign of active hemorrhage noted per esophagogastroduodenoscopy yesterday. Inflamed non-bleeding prepyloric ulcerations and duodenal erosion noted. Hemoglobin currently 8.0 after second unit of packed red blood cells. Repeat hemoglobin stable. Okay for discharge home with close outpatient follow-up Continue proton pump inhibition (2) GI bleed: Status: Acute Assessment and plan: (See #1 above) (3) Peptic ulcer disease with hemorrhage: Status: Acute Assessment and plan: (See #1 above)
[2024-02-07] MEDS: SODIUM CHLORIDE 0.9% 10ML VIAL 10 ML IV (09:24)
[2024-02-07] MEDS: PANTOPRAZOLE 40MG VIAL 40 MG IV (09:24)
--- NOTE | 2024-02-07 10:49 | P.DS_ITS ---
General Admission date:: 02/05/24 Discharge date: 02/07/24 HPI HPI HPI: Patient is a 68-year-old male with history of coronary artery disease, previous [place], diabetes, hyperlipidemia, hypertension, on chronic warfarin for apparent DVTs in the past, primary care provider Dr. Chris Loco who was sent from primary care provider's office to the emergency department for generalized weakness. He has had 2 weeks of nausea with shortness of air weakness and melanic stools. He had some visual changes. Emergency department evaluation revealed a hemoglobin of 6.9. He was given a unit of packed red blood cells in the emergency department with symptomatic improvement. No prior history of ulcers. No history of EGD or colonoscopy. Apparently had a Cologuard test about 6 months ago which was normal. CT angiogram in the emergency department revealed no acute bleeding. INR in the emergency department was less than 1.5. Posttransfusion resulted in hemoglobin of 7.8. His hemoglobin is 6.6 this morning. He denies hematochezia. Stool for occult blood is positive. Hospital Course Hospital Course Hospital Course: Mr. Sanchez is a 68-year-old male who presented with symptomatic anemia, concern for GI bleed. Positive stool guaiac. Monitored overnight. Currently on pantoprazole. Surgery consulted and perform EGD today. No further black stools since admission. Had reaction to second unit of blood being transfused overnight with hypotension. Was taken for EGD with punctate ulcerations, no active bleeding. Hemoglobin responded to third unit of blood. Has remained stable. Meeting criteria for discharge home with close follow-up as an outpatient. Problems addressed as follows: Symptomatic anemia: Suspected GI bleed ?Surgery consulted, help manage case during admission. Patient taken for EGD on 02/06/2024. Found to have punctate ulcerations with no active bleeding. Concerned that these were the site of his blood loss however on his warfarin. Patient was initiated on pantoprazole 40 mg once IV twice daily during admission. Hemoglobin responded to third unit of transfusion. Improved to 8.0. Maintained at a stable level for 24 hours. No active signs of bleeding. Recommend holding warfarin. Would benefit from considering transition to Eliquis to decrease risk of GI bleed in light of patient's history of DVTs. Would benefit from repeat CBC in 1 week to monitor stability of hemoglobin. Continue pantoprazole 40 mg oral twice daily. Chronic anticoagulation: On warfarin for history of recurrent DVTs. Has not been tried on any other DOAC oral anticoagulant. Will hold anticoagulation at this time. Reevaluate resumption in 2 to 4 weeks -INR 1.4 on admission. Subtherapeutic. Improved to 1.2 by day of discharge. Status post vitamin K administration on admission. [place]: Continue home management Hyperlipidemia: Continue home management Hypertension: Hold during admission. Continue to hold at discharge. Follow-up with PCP and reevaluation of blood pressure in light of normotensive state. Diabetes: Resume oral regimen at discharge. Total time spent on discharge 36 minutes in counseling, documentation, chart review, and direct care with patient. Exam Data for Last 24 hours Vital signs and Labs for Last 24 Hours: Temp Pulse Resp BP Pulse Ox O2 Del Method O2 Flow Rate 97.7 F 71 16 115/68 98 Room Air 5 02/07/24 08:00 02/07/24 08:00 02/07/24 08:00 02/07/24 08:00 02/07/24 08:00 02/07/24 08:00 02/06/24 11:51 Laboratory Results - last 24 hr 02/05/24 12:29: Blood Type A Negative, Antibody Screen Negative, Crossmatch (AHG) See Detail 02/06/24 04:55: Direct Antiglob Test Cancelled 02/06/24 04:55: Direct Antiglob Test Negative, Crossmatch (AHG) See Detail, Hemolysis Bld Bag Check Cancelled 02/06/24 04:55: Hemolysis Bld Bag Check No, Pre-Trans Blood Type Cancelled 02/06/24 04:55: Pre-Trans Blood Type A negative, Pre-Trans Vis Hemolysis Cancelled 02/06/24 04:55: Pre-Trans Vis Hemolysis No, Pre-Trans Antibody Scrn Cancelled 02/06/24 04:55: Pre-Trans Antibody Scrn Negative, Post-Trans Blood Type Cancelled 02/06/24 04:55: Post-Trans Blood Type A negative, Post-Tx Visible Hemolys Cancelled 02/06/24 04:55: Post-Tx Visible Hemolys No, Post-Trans Antibody Scrn Cancelled 02/06/24 04:55: Post-Trans Antibody Scrn Negative, Reaction Path Interpret Cancelled 02/06/24 04:55: Reaction Path Interpret Comment 02/06/24 13:07: Hgb 6.7 L*, Hct 20.6 L* 02/06/24 16:40: POC Glucose 202 H 02/06/24 16:47: Hgb 8.0 L D, Hct 25.2 L 02/06/24 20:18: POC Glucose 166 H 02/07/24 05:43: POC Glucose 128 H 02/07/24 06:08: WBC 8.4, RBC 2.61 L D, Hgb 8.0 L, Hct 25.1 L, MCV 96.3 H, MCH 30.7, MCHC 31.9, RDW 19.6 H, Plt Count 230, MPV 8.5, Neut % (Auto) 74.6, Lymph % (Auto) 16.2, [place] % (Auto) 5.5, Eos % (Auto) 3.4, Baso % (Auto) 0.3, Neut # (Auto) 6.3, Lymph # (Auto) 1.4, [place] # (Auto) 0.5, Eos # (Auto) 0.3, Baso # (Auto) 0.0, PT 14.0 H, INR 1.28 H, Sodium 135 L, Potassium 4.3, Chloride 107, Carbon Dioxide 23, Anion Gap 9.3, BUN 24 H, Creatinine 1.50 H, Estimated Creat Clear 64, Estimated GFR 46 L, Est GFR ( Amer) 56 L, Glucose 115 H, Calcium 8.6, Magnesium 1.6 I & O for Last 24 hours: Intake & Output 02/04/24 02/05/24 02/06/24 02/07/24 23:59 23:59 23:59 23:59 Intake Total 1425 / 1425 635 / 635 Output Total 400 / 400 0 / 0 Balance 1025 / 1025 635 / 635 Weight 95.878 kg 95.878 kg 98.021 kg Constitutional Constitutional: no acute distress, average body habitus and cooperative *Routine HEENT Exam Head: Present normocephalic Eye: Present EOMI and PERRL ENT: Present mucous membranes moist *Routine Neck Exam Neck: Present supple; Absent lymphadenopathy *Routine Respiratory Exam Respiratory: Present CTA bilaterally; Absent rhonchi, wheezes or crackles *Routine Cardiovascular Exam Cardiovascular: Present RRR *Routine Abdominal Exam Abdominal: Present soft and normoactive bowel sounds; Absent tenderness *Routine Rectal Exam Patient deferred: visual exam *Routine Exam Patient deferred: penile exam *Routine Extremities Exam Extremities: Absent cyanosis, clubbing or edema *Routine Skin Exam Skin: Present intact and warm; Absent rash *Routine Neurological Exam Neurological: Present alert, oriented X3 and moving all extremities; Absent altered mental status Results Data Completed and Pending Labs on day of discharge: Labs from last 24 hours 02/07/24 02/07/24 02/06/24 06:08 05:43 20:18 WBC 8.4 RBC 2.61 L D Hgb 8.0 L Hct 25.1 L MCV 96.3 H MCH 30.7 MCHC 31.9 RDW 19.6 H Plt Count 230 MPV 8.5 Neut % (Auto) 74.6 Lymph % (Auto) 16.2 [place] % (Auto) 5.5 Eos % (Auto) 3.4 Baso % (Auto) 0.3 Neut # (Auto) 6.3 Lymph # (Auto) 1.4 [place] # (Auto) 0.5 Eos # (Auto) 0.3 Baso # (Auto) 0.0 PT 14.0 H INR 1.28 H Sodium 135 L Potassium 4.3 Chloride 107 Carbon Dioxide 23 Anion Gap 9.3 BUN 24 H Creatinine 1.50 H Estimated Creat Clear 64 Estimated GFR 46 L Est GFR ( Amer) 56 L Glucose 115 H POC Glucose 128 H 166 H Calcium 8.6 Magnesium 1.6 Blood Type Antibody Screen Direct Antiglob Test Crossmatch (AHG) Hemolysis Bld Bag Check Pre-Trans Blood Type Pre-Trans Vis Hemolysis Pre-Trans Antibody Scrn Post-Trans Blood Type Post-Tx Visible Hemolys Post-Trans Antibody Scrn Reaction Path Interpret 02/06/24 02/06/24 02/06/24 16:47 16:40 13:07 WBC RBC Hgb 8.0 L D 6.7 L* Hct 25.2 L 20.6 L* MCV MCH MCHC RDW Plt Count MPV Neut % (Auto) Lymph % (Auto) [place] % (Auto) Eos % (Auto) Baso % (Auto) Neut # (Auto) Lymph # (Auto) [place] # (Auto) Eos # (Auto) Baso # (Auto) PT INR Sodium Potassium Chloride Carbon Dioxide Anion Gap BUN Creatinine Estimated Creat Clear Estimated GFR Est GFR ( Amer) Glucose POC Glucose 202 H Calcium Magnesium Blood Type Antibody Screen Direct Antiglob Test Crossmatch (AHG) Hemolysis Bld Bag Check Pre-Trans Blood Type Pre-Trans Vis Hemolysis Pre-Trans Antibody Scrn Post-Trans Blood Type Post-Tx Visible Hemolys Post-Trans Antibody Scrn Reaction Path Interpret 02/06/24 02/06/24 02/06/24 04:55 04:55 04:55 WBC RBC Hgb Hct MCV MCH MCHC RDW Plt Count MPV Neut % (Auto) Lymph % (Auto) [place] % (Auto) Eos % (Auto) Baso % (Auto) Neut # (Auto) Lymph # (Auto) [place] # (Auto) Eos # (Auto) Baso # (Auto) PT INR Sodium Potassium Chloride Carbon Dioxide Anion Gap BUN Creatinine Estimated Creat Clear Estimated GFR Est GFR ( Amer) Glucose POC Glucose Calcium Magnesium Blood Type Antibody Screen Direct Antiglob Test Crossmatch (AHG) Hemolysis Bld Bag Check Pre-Trans Blood Type Pre-Trans Vis Hemolysis Pre-Trans Antibody Scrn Post-Trans Blood Type Post-Tx Visible Hemolys No Post-Trans Antibody Scrn Negative Cancelled Reaction Path Interpret Comment Cancelled 02/06/24 02/06/24 02/06/24 04:55 04:55 04:55 WBC RBC Hgb Hct MCV MCH MCHC RDW Plt Count MPV Neut % (Auto) Lymph % (Auto) [place] % (Auto) Eos % (Auto) Baso % (Auto) Neut # (Auto) Lymph # (Auto) [place] # (Auto) Eos # (Auto) Baso # (Auto) PT INR Sodium Potassium Chloride Carbon Dioxide Anion Gap BUN Creatinine Estimated Creat Clear Estimated GFR Est GFR ( Amer) Glucose POC Glucose Calcium Magnesium Blood Type Antibody Screen Direct Antiglob Test Crossmatch (AHG) Hemolysis Bld Bag Check Pre-Trans Blood Type Pre-Trans Vis Hemolysis No Pre-Trans Antibody Scrn Negative Cancelled Post-Trans Blood Type A negative Cancelled Post-Tx Visible Hemolys Cancelled Post-Trans Antibody Scrn Reaction Path Interpret 02/06/24 02/06/24 02/06/24 04:55 04:55 04:55 WBC RBC Hgb Hct MCV MCH MCHC RDW Plt Count MPV Neut % (Auto) Lymph % (Auto) [place] % (Auto) Eos % (Auto) Baso % (Auto) Neut # (Auto) Lymph # (Auto) [place] # (Auto) Eos # (Auto) Baso # (Auto) PT INR Sodium Potassium Chloride Carbon Dioxide Anion Gap BUN Creatinine Estimated Creat Clear Estimated GFR Est GFR ( Amer) Glucose POC Glucose Calcium Magnesium Blood Type Antibody Screen Direct Antiglob Test Negative Crossmatch (AHG) See Detail Hemolysis Bld Bag Check No Cancelled Pre-Trans Blood Type A negative Cancelled Pre-Trans Vis Hemolysis Cancelled Pre-Trans Antibody Scrn Post-Trans Blood Type Post-Tx Visible Hemolys Post-Trans Antibody Scrn Reaction Path Interpret 02/06/24 02/05/24 04:55 12:29 WBC RBC Hgb Hct MCV MCH MCHC RDW Plt Count MPV Neut % (Auto) Lymph % (Auto) [place] % (Auto) Eos % (Auto) Baso % (Auto) Neut # (Auto) Lymph # (Auto) [place] # (Auto) Eos # (Auto) Baso # (Auto) PT INR Sodium Potassium Chloride Carbon Dioxide Anion Gap BUN Creatinine Estimated Creat Clear Estimated GFR Est GFR ( Amer) Glucose POC Glucose Calcium Magnesium Blood Type A Negative Antibody Screen Negative Direct Antiglob Test Cancelled Crossmatch (AHG) See Detail Hemolysis Bld Bag Check Pre-Trans Blood Type Pre-Trans Vis Hemolysis Pre-Trans Antibody Scrn Post-Trans Blood Type Post-Tx Visible Hemolys Post-Trans Antibody Scrn Reaction Path Interpret DS: Diagnosis Discharge Diagnosis (1) Anemia: Status: Acute Code(s): D64.9 - Anemia, unspecified Problem details: Likely secondary to prepyloric ulceration and/or duodenal bulb erosion (2) GI bleed: Status: Acute Code(s): K92.2 - Gastrointestinal hemorrhage, unspecified (3) Peptic ulcer disease with hemorrhage: Status: Acute Code(s): K27.4 - Chronic or unspecified peptic ulcer, site unspecified, with hemorrhage Meds Home Medications and Allergies Home Medications Medication Instructions Recorded Confirmed Type albuterol sulfate 90 mcg/actuation 1 inh inhalation DAILY 02/05/24 02/05/24 History breath activated powder inhaler allopurinol 300 mg tablet 300 mg PO DAILY 02/05/24 02/05/24 History benazepril 20 1 tab PO DAILY 02/05/24 02/06/24 History mg-hydrochlorothiazide 25 mg tablet empagliflozin 10 mg tablet 10 mg PO DAILY 02/05/24 02/05/24 History (Jardiance) fluticasone furoate 100 1 inh inhalation DAILY 02/05/24 02/05/24 History mcg-vilanterol 25 mcg/dose inhalation powder (Breo Ellipta) montelukast 10 mg tablet 10 mg PO PM 02/05/24 02/06/24 History sitagliptin phosphate 25 mg tablet 25 mg PO DAILY 02/05/24 02/05/24 History (Januvia) verapamil 180 mg tablet,extended 180 mg PO DAILY 02/05/24 02/05/24 History release warfarin 4 mg tablet 7 mg PO DAILY 02/05/24 02/06/24 History pantoprazole 40 mg tablet,delayed 40 mg PO BID 30 days #60 tabs 02/07/24 Rx release New Prescriptions to Start Prescriptions: pantoprazole Reji Rose Allergies Allergy/AdvReac Type Severity Reaction Status Date / Time amoxicillin [From AUGMENTIN] Allergy Mild Verified 08/21/17 17:34 clavulanic acid Allergy Mild Verified 08/21/17 17:34 [From AUGMENTIN] ibuprofen [IBUPROFEN] Allergy Unknown Verified 08/21/17 17:34 naproxen [From ALEVE] Allergy Unknown Verified 08/21/17 17:34 Discharge Plan Disposition Patient Disposition: Home, Self-Care Condition: Fair Discharge Order Discharge Orders: Discharge Order (Routine); Ordered 02/07/24 Ordered By: Reji Rose Follow up Plan Follow up with: Leonel Dixon MD [Staff Physician] - 02/15/24 9:00 am Sophie Lozano APRN [Nurse Practitioner] - 02/14/24 10:00 am Prescriptions/Medication Reconciliation: New pantoprazole 40 mg tablet,delayed release (DR/EC) 40 mg PO BID 30 Days Qty: 60 0RF Continued montelukast 10 mg Tablet 10 mg PO PM allopurinol 300 mg tablet 300 mg PO DAILY Patient Comments: TAKE 1 TABLET BY MOUTH DAILY Januvia 25 mg tablet 25 mg PO DAILY Patient Comments: TAKE 1 TABLET BY MOUTH DAILY fluticasone furoate-vilanterol [Breo Ellipta] 100-25 mcg/dose Blister With Device 1 inh INHALATION DAILY Jardiance 10 mg tablet 10 mg PO DAILY Patient Comments: TAKE 1 TABLET BY MOUTH EVERY DAY albuterol sulfate 90 mcg/actuation Aerosol Powdr Breath Activated 1 inh INHALATION DAILY Held verapamil 180 mg tablet extended release 180 mg PO DAILY Hold Instructions: Pending follow-up with PCP and reevaluation of blood pressure Patient Comments: TAKE 1 TABLET BY MOUTH EVERY MORNING WITH FOOD benazepril-hydrochlorothiazide 20-25 mg tablet 1 tab PO DAILY Hold Instructions: Pending follow-up with PCP and reevaluation of blood pressure Patient Comments: TAKE 1 TABLET BY MOUTH DAILY warfarin 4 mg tablet 7 mg PO DAILY Hold Instructions: Hold until evaluation with PCP. Recommend transitioning to Eliquis as he is not therapeutic on warfarin. Would not need monitoring on Eliquis. Has no contraindication to taking this medication. Lower risk of GI bleed. Problem Reconciliation Problems Reviewed?: Yes Patient Discharge Instructions ACTIVITY: Continue current activity DIET: continue same diet Patient Instructions: Anemia: How Food and Vitamins Can Help, Anemia, Coumadin Vitamin K/ Diet Providers Primary Care Provider: Soy Loco Admit Provider: Nick Lopez Attending Provider: Nick Lopez
--- NOTE | 2024-02-09 14:36 | SW/DCPLANNER ---
Hospital discharge follow up phone call attempted twice w/ no answer LVM.
== END 2024-02-07 11:54 | disposition home or self-care (01) | DRG 811 ==
LOC: ER 16:57 → 2ND 17:09
PROVIDERS: Surgery; Admitting Provider Internal Medicine; Emergency Provider Emergency Medicine; PCP Family Medicine; Visit Provider Internal Medicine
PROC: 0DJ08ZZ Inspection of Upper Intestinal Tract, Via Natural or Artificial Opening Endoscopic (ICD-10-PCS; CPT 43235; principal; 2024-02-06 12:00)
DX: D64.9 Anemia, unspecified (principal); K27.4 Chronic or unspecified peptic ulcer, site unspecified, with hemorrhage; N17.9 Acute kidney failure, unspecified; Z79.01 Long term (current) use of anticoagulants; I10 Essential (primary) hypertension; Z86.718 Personal history of other venous thrombosis and embolism; E11.9 Type 2 diabetes mellitus without complications; E78.5 Hyperlipidemia, unspecified; I25.2 Old myocardial infarction; K44.9 Diaphragmatic hernia without obstruction or gangrene; K22.2 Esophageal obstruction; K29.80 Duodenitis without bleeding; Z79.84 Long term (current) use of oral hypoglycemic drugs; Z79.899 Other long term (current) drug therapy
CPT/HCPCS: 36415; 36430; 71046; 74174; 80048; 80053; 82272; 82962; 83735; 83880; 84484; 85007; 85014; 85018; 85025; 85027; 85610; 86078; 86850; 93005; 99285; G0328; J3430; J3475; P9016; Q9967

== ENCOUNTER 2024-03-04 12:12 | Day surgery (SDC) | payer MEDICARE, SELFPAY ==
[2024-03-04] VITALS (7 sets, daily range): BP systolic 85–99; BP diastolic 49–68; PULSE 71–85; RESP 18; TEMP 36.5–36.6; O2SAT 94–100; BMI 29.1
[2024-03-04 12:37] LABS: POC Glucose,Bedside 175 (70-110)
--- NOTE | 2024-03-04 14:04 | P.PCN_ITS ---
Procedure: Date: 03/04/24 Patient Date of :: 1955 Procedure Performed:: Esophagogastroduodenoscopy with biopsies Total colonoscopy to ileocecal valve with polypectomy using cold snare . Indications:: Patient is a 68-year-old male who presents for colonoscopy. He was recently seen in the office after he underwent inpatient EGD on 02/06/2024. He has a history of coronary artery disease, previous [place], diabetes, hyperlipidemia, hypertension, on chronic warfarin for apparent DVTs in the past. He states that he eats a significant amount of beets including juice and was having some change in the color of his stool which he attributed to beet intake. Primary care provider Dr. Chris Loco. He had developed significant weakness and was sent from primary care provider's office to the emergency department for generalized weakness. Evaluation in the emergency department revealed a hemoglobin of 6.9. He was transfused a unit of packed red blood cells and this resulted in improvement to 7.8. However follow-up hemoglobin was 6.6. Ultimately during that hospitalization his hemoglobin stabilized at approximately 8 after a total of 3 units. I performed inpatient EGD on 02/06/2024 at which time he had findings of GE junction at 38 cm, nonobstructing beginning of Schatzki's ring, small 2 cm hiatal hernia, mild nonerosive diffuse gastritis, a couple of somewhat inflamed nonbleeding prepyloric shallow ulcers and duodenitis within the duodenal bulb. He has now started Eliquis as opposed to Coumadin. No definite blood loss per rectum. Of note, patient had a Cologuard test about 12 to 18 months ago which was negative. However, subsequently his sister had from colon cancer. It was felt that the patient could have had a self-limited loss of blood from upper GI etiology on anticoagulation. However given the stigmata of significant etiology on the EGD and family history of colon cancer in first-degree relative I recommended follow-up upper endoscopy as well as colonoscopy. . Performing Provider:: Leonel Dixon MD Referring Provider:: Chris Loco MD Sedation:: MAC sedation Procedure:: Patient history was obtained and appropriate physical examination was performed. Patient's medications and allergies were reviewed. Informed consent was obtained after explaining the benefits, alternatives, and risks of the procedure including, but not limited to, bleeding, perforation, missed lesions, and adverse reaction to anesthesia medications. Patient was transported to endoscopy procedure room. Patient was connected to monitoring devices. Throughout the procedure the patient's blood pressure, pulse, and oxygen saturations were monitored continuously. Patient identification and planned procedure were verified by the staff. Attention was first turned to upper endoscopy. Olympus endoscope was inserted via the oropharynx. Esophagus was cannulated. Endoscope was advanced. There was some minor tortuosity consistent with possible esophageal dysmotility. Gastroesophageal junction was encountered at approximately 39 cm from the incisors. Stomach was cannulated and insufflated. Retroflexion revealed minuscule hiatal hernia. There was some diffuse nonerosive gastropathy/gastritis. Biopsy was obtained. Pylorus was traversed and duodenum appeared unremarkable. Endoscope was withdrawn. Next attention was turned to colonoscopy. Patient was positioned in lateral decubitus position. Digital anorectal exam was performed. Variable stiffness Olympus colonoscope was inserted and advanced under direct visualization to the cecum. Adequacy of the colonic preparation was noted. There were regions of the colon where there was undigested vegetable matter which was unable to be cleared despite irrigation and suctioning obscuring visualization. Colonoscope was advanced to the cecum and ileocecal valve. The colonoscope was then slowly withdrawn while carefully examining the color, texture, anatomy, and integrity of the mucosoa circumferentially. At the rectosigmoid region there was a sessile possibly adenomatous polyp removed in its entirety with cold cutting snare. Within the rectum retroflexion was performed. Colonoscope was then wit hdrawn. Findings:: Possible mild esophageal dysmotility Gastroesophageal junction at 39 cm Minuscule hiatal hernia Diffuse nonerosive gastropathy Suboptimal colon preparation with undigested vegetable matter Rectosigmoid polyp . Recommendations:: Treat H. pylori if positive. Recommend repeat colonoscopy 1 year given suboptimal prep with abstaining from high residue type foods for several days. Recommend patient undergo follow-up outpatient cardiology evaluation given prior history and labile blood pressure during procedure. Complications:: None immediately apparent Estimated blood obtained (mL): 1 Colonoscopy Component Colonoscopy Component Was a colonoscopy performed during today's procedure?: Yes Recommended follow up colonoscopy of at least 10 years?: No If no, follow up colonoscopy recommended in ___ years?: See above Reason for not recommending >/= 10 yr follow-up interval?: See above
--- NOTE | 2024-03-04 15:09 | P.PNANES_ITS ---
[facility] Disclaimer: The information contained in this section may have been updated after the patient was seen, as this information can be updated by other users. Medical History CHF (congestive heart failure) Hyperlipemia HTN (hypertension) Cataract History of COVID-19 Asthma Diabetes mellitus, type 2 History of anemia CHI (closed head injury) Fracture of olecranon process of right ulna with intraarticular extension Surgical History Hx of cataract surgery Hx of sinus surgery History of surgery History of ankle surgery History of back surgery History of hip replacement History of surgery History of esophagogastroduodenoscopy (EGD) Family History Other Stomach cancer Social History (Updated 03/04/24 @ 12:20 by Dayami Torres RN) Smoking Status: Never smoker alcohol intake: never substance use type: denies use current occupational status: retired Travel in the last 8 weeks: None caffeine: Yes [facility] Anesthesia Checklist Patient Identification Patient Identification: Arm Band Structural Data Admitted From: Home Planned Operative Procedure/s: EGD/Colonoscopy Consent for Planned Operative Procedure(s) Verified: Yes Verified Documents: Surgical Consent and History and Physical NPO Status Verified Time NPO: 00:00 Additional verifications Anesthesia Reactions: No Hx Blood Transfusions: Yes Airway Assessment Mallampati Score:: Class II TMJ Mobility Assessed: Yes Dentition: Good Dentition Neurological Assessment Level of Consciousness: Awake, Alert and Appropriate Anesthesia Plan Anesthesia Risk discussed: Yes Anesthesia Plan: Verified ASA Class: III Anesthesia Type: MAC
--- NOTE | 2024-03-04 15:34 | SUR.PHASEII ---
Patient baseline BP in pre op 93/68. Post op BP 99/56. patient remains alert and oriented x4, denies dizziness or chest pain. PCP appointment made for 03/05/24 at 1030 to discuss BP. patient instructed to go to ER if patient becomes dizzy, lightheaded, or LOC. Family to stay with patient for remainder of day.
== END 2024-03-04 15:26 | disposition home or self-care (01) ==
PROVIDERS: PCP Family Medicine; Visit Provider Surgery
PROC: 0DJD8ZZ Inspection of Lower Intestinal Tract, Via Natural or Artificial Opening Endoscopic (ICD-10-PCS; CPT 43239; principal; 2024-03-04 13:15)
DX: Z12.11 Encounter for screening for malignant neoplasm of colon (principal); Z80.0 Family history of malignant neoplasm of digestive organs; D12.7 Benign neoplasm of rectosigmoid junction; K44.9 Diaphragmatic hernia without obstruction or gangrene; K31.9 Disease of stomach and duodenum, unspecified; K29.70 Gastritis, unspecified, without bleeding; I25.10 Atherosclerotic heart disease of native coronary artery without angina pectoris; E11.9 Type 2 diabetes mellitus without complications; E78.5 Hyperlipidemia, unspecified; I10 Essential (primary) hypertension; Z79.01 Long term (current) use of anticoagulants; I25.2 Old myocardial infarction
CPT/HCPCS: 43239; 45385; 82962; 88305; 88342

== ENCOUNTER 2024-12-17 14:38 | Outpatient (CLI) | payer MEDICARE, SELFPAY ==
--- NOTE | 2024-12-17 14:42 | XR_ITS ---
FINAL REPORT CLINICAL HISTORY: B/L foot pain FINDINGS: RIGHT FOOT Three views demonstrate no acute fracture or dislocation. The joint spaces appear normal. The bones are osteopenic. There are moderate vascular calcifications. There is a small plantar spur. There are 2 orthopedic screws securing the medial malleolus. IMPRESSION: Bones are osteopenic. Reviewed, Interpreted and Dictated by Wesly Mcdaniels MD Transcribed by Erica Thayer Authenticated and . [facility]
--- NOTE | 2024-12-17 14:42 | XR_ITS ---
FINAL REPORT CLINICAL HISTORY: B/L foot pain FINDINGS: LEFT FOOT Three views demonstrate no acute fracture or dislocation. The joint spaces appear normal. There is soft tissue calcifications medial to the distal first metatarsal, probably dystrophic. There is no evidence of bony erosion to suggest gout. There are mild vascular calcifications. There is a small to moderate plantar spur. IMPRESSION: Soft tissue calcifications medial to the distal first metatarsal, probably dystrophic. No evidence of bony erosion to suggest gout. Reviewed, Interpreted and Dictated by Wesly Mcdaniels MD Transcribed by Erica Thayer Authenticated and [facility]
[2024-12-17 15:37] LABS: Basophils % 0.5 % (0.1-2.0); Eosinophils # 0.3 Kmm3 (0.0-0.4); Eosinophils % 3.9 % (0.1-12.0); Hematocrit 41.5 % (42.0-52.0); Hemoglobin 13.4 g/dL (14.1-18.0); Immature Granulocytes # 0.02 10^3uL; Immature Granulocytes % 0.2 %; Lymphocytes # 1.5 K/mm3 (0.7-4.5); Lymphocytes % 16.6 % (10-50); Mean Corpuscular HGB Conc 32.3 g/dL (31.8-35.4); Mean Corpuscular Hemoglobin 25.8 pg (27.0-31.2); Mean Platelet Volume 11.1 fl (7.4-10.4); Monocytes # 0.6 K/mm3 (0.1-1.0); Monocytes % 7.2 % (1.7-9.3); Neutrophils # 6.3 K/mm3 (1.8-7.8); Neutrophils % 71.6 % (37.0-80.0); Nucleated Red Blood Cells # 0 10^3/uL; Nucleated Red Blood Cells % 0 %; Platelet Count 215 K/mm3 (142-424); Red Blood Count 5.19 M/mm3 (4.60-6.20); Red Cell Distribution Width 15.7 % (11.5-17.5); Red Cell Distribution Width-SD 45.1 fL; White Blood Count 8.8 K/mm3 (4.8-10.8)
[2024-12-17 16:08] LABS: Alanine Aminotransferase 21 U/L (12-78); Albumin Level 4.2 g/dl (3.5-5.0); Albumin/Globulin Ratio 1.7 (1.1-1.8); Alkaline Phosphatase 102 U/L (38-126); Anion Gap 13.3 mEq/L (5-15); Aspartate Amino Transferase 25 U/L (17-59); Bilirubin,Total 0.5 mg/dl (0.2-1.3); Blood Urea Nitrogen 24 mg/dl (9-20); Carbon Dioxide 24 mmol/L (22.0-30.0); Chloride 104 mmol/L (98-107); Estimated Glomerular Filt Rate 46 ml/min (>60); GFR (African American) 56 ML/MIN (>60); Globulin 2.5 g/dL (1.3-3.2); Glucose 201 mg/dl (74-100); Potassium 4.3 mmoL/L (3.5-5.1); Sodium 137 mmol/L (136-145); Total Protein,Serum 6.7 g/dl (6.3-8.2); Uric Acid 4.2 mg/dl (3.5-8.5)
[2024-12-17 16:16] LABS: C-Reactive Protein 6.7 mg/L (0-4)
[2024-12-17 17:26] LABS: Hemoglobin A1C 8.5 % (4.0-6.0)
[2024-12-17 17:47] LABS: Erythrocyte Sedimentation Rate 16 mm/hr (0-20)
== END 2024-12-17 23:59 | disposition home or self-care (01) ==
PROVIDERS: PCP Family Medicine; Visit Provider Podiatrist
DX: E11.621 Type 2 diabetes mellitus with foot ulcer (principal); L97.509 Non-pressure chronic ulcer of other part of unspecified foot with unspecified severity; M85.871 Other specified disorders of bone density and structure, right ankle and foot; R93.6 Abnormal findings on diagnostic imaging of limbs; R60.9 Edema, unspecified
CPT/HCPCS: 36415; 73630; 80053; 83036; 84550; 85025; 85651; 86140; 87070; 87077; 87205

== ENCOUNTER 2024-12-24 10:42 | Outpatient (CLI) | payer MEDICARE, SELFPAY ==
--- NOTE | 2024-12-24 11:00 | US_ITS ---
FINAL REPORT CLINICAL HISTORY: CLAUDICATION,REST PAIN,HTN,HLD,DM,CAD,WOUND RT DORSAL FOOT COMPARISON: None FINDINGS: ANKLE-BRACHIAL PRESSURE INDICES Pressure indices are as follows: RIGHT LOWER EXTREMITY: Ankle-brachial pressure index: 0.99 Comments: Normal LEFT LOWER EXTREMITY: Ankle-brachial pressure index: 0.74 Comments: Moderately depressed CONCLUSION: No evidence of significant obstructive peripheral vascular disease of the right lower extremity Moderately depressed ankle-brachial indices left lower extremity Reviewed, Interpreted and Dictated by Odalis Crowell MD Transcribed by Kenzie English Authenticated and [facility]
== END 2024-12-24 23:59 | disposition home or self-care (01) ==
LOC: RT 10:42
PROVIDERS: PCP Family Medicine; Visit Provider Podiatrist
DX: I73.9 Peripheral vascular disease, unspecified (principal); I10 Essential (primary) hypertension; E78.5 Hyperlipidemia, unspecified; E11.9 Type 2 diabetes mellitus without complications; I25.10 Atherosclerotic heart disease of native coronary artery without angina pectoris; R09.89 Other specified symptoms and signs involving the circulatory and respiratory systems
CPT/HCPCS: 93923

== ENCOUNTER 2025-01-09 08:23 | Outpatient (CLI) | payer MEDICARE, SELFPAY ==
--- OUTSIDE RECORDS SUMMARY | 2025-01-09 08:32 | XMS_ITS | Clinical Summary ---
Author Organization [facility] Address [address] [place] [address] Care Team Providers [employer] Name Role Phone Tomy Jackson MD Primary Care Provider [phone] Allergies Active Allergy Reactions Criticality Noted Date Comments Amoxicillin Other - please docum ent in the comment field,Unknown - Patient states they do not know rxn details Low 08/23/2017 Ibuprofen Unknown - Patient st ates they do not know rxn details Low 09/15/2017 Naproxen Unknown - Patient st ates they do not know rxn details Low 09/15/2017 Medications allopurinol (Zyloprim) 300 MG tablet Take 1 tablet (300 mg) by mouth 1 (one) time each day. 2 Active benazepril-hydr oCHLOROthiazide (Lotensin HCT) 20-25 MG tablet Take 1 tablet by mouth 1 (one) time each day. 2 Active Breo Ellipta 100-25 MCG/INH inhaler INHALE 1 PUFF BY MOUTH EVERY DAY 2 Active montelukast (Singulair) 10 MG tablet 1 (one) time each day in the evening. 2 Active verapamil SR (Calan-SR) 180 MG ER tablet TAKE 1 TABLET BY MOUTH EVERY MORNING WITH FOOD 2 Active warfarin (Coumadin) 4 MG tablet Take 1 tablet (4 mg) by mouth 1 (one) time each day. 2 Active metFORMIN (Glucophage) 500 MG tablet Take 500 mg by mouth 2 (two) times a day with meals. Active oxyCODONE (Roxicodone) 5 MG immediate release tablet Take 1 tablet (5 mg total) by mouth every 6 (six) hours if needed for severe pain. 30 tablet 2 Active Additional Information Patient not taking.Reported on 10/12/2023 methocarbamol (Robaxin) 500 MG tablet Take 1 tablet (500 mg total) by mouth 4 (four) times a day for 10 days. 40 tablet 2 Active acetaminophen (Tylenol) 500 MG tablet Take 2 tablets (1,000 mg total) by mouth every 6 (six) hours if needed for pain. 100 tablet 2 Active traMADol (Ultram) 50 MG tablet Take 1 tablet (50 mg total) by mouth every 8 (eight) hours if needed for severe pain. 50 tablet 2 Active Additional Information Patient not taking.Reported on 10/12/2023 Symbicort 80-4.5 MCG/ACT inhaler Inhale 2 puffs 2 (two) times a day. 2 Active Jardiance 10 MG Take 1 tablet (10 mg) by mouth 1 (one) time each day. 2 Active albuterol 108 (90 Base) MCG/ACT inhaler INHALE ONE PUFF BY MOUTH EVERY 4 HOURS NEEDED 4 Active Blood Glucose Monitoring Suppl (Accu-Chek Guide) w/Device kit USE DIRECTED 4 Active ergocalciferol 1.25 MG (48038 UT) capsule TAKE 1 CAPSULE BY MOUTH 1 TIME A WEEK 4 Active Wixela Inhub 500-50 MCG/ACT diskus inhaler Inhale 1 puff 2 (two) times a day. 4 Active Accu-Chek Guide test strip 1 (one) time each day. as directed 4 Active Accu-Chek Softclix Lancets lancets 1 (one) time each day. as directed 4 Active indomethacin (Indocin) 50 MG capsule TAKE 1 CAPSULE BY MOUTH TWICE DAILY WITH FOOD OR MILK 4 Active Active Problems Problem Noted Date Diagnosed Date Elbow pain, right 03/30/2022 Overview (03/30/2022): Added automatically from request for surgery [id number] Chronic obstructive pulmonary disease 03/30/2022 Gout 03/30/2022 HTN (hypertension) 03/30/2022 DVT (deep venous thrombosis) 03/30/2022 Immunizations Immunization Administration Dates Next Due Tdap 08/21/2017 Social History Tobacco Use Types Packs/Day Years Used Date Smoking Tobacco: Former Smokeless Tobacco: Never Tobacco Cessation:Counseling Given: Not Answered Alcohol Use Standard Drinks/Week Comments Never 0 (1 standard drink = 0.6 oz pur e alcohol) PHQ-2 Answer Date Recorded Patient Health Questionnaire-2 Score 0 03/30/2022 Sex and Gender Information Value Date Recorded Sex Assigned at Male 03/31/2022 2:22 PM EDT Legal Sex Male 6:46 PM EDT Gender Identity Male 03/31/2022 2:22 PM EDT Sexual Orientation Straight 03/31/2022 2: 22 PM EDT Last Filed Vital Signs Vital Sign Reading Time Taken Comments Blood Pressure 116/78 10/12/2023 11:06 AM EDT Pulse 77 10/12/2023 11:06 AM EDT Temperature 36.4 C (97.6 F) 09/10/2023 6:09 PM EST Respiratory Rate 19 09/10/2023 9:31 PM EST Oxygen Saturation 98% 10/12/2023 11:06 AM EDT Inhaled Oxygen Concentration - - Weight 99.8 kg (220 lb) 10/12/2023 11:06 AM EDT Height 182.9 cm (6') 10/12/2023 11:06 AM EDT Body Mass Index 29.84 10/12/2023 11:06 AM EDT Plan of Treatment Health Maintenance Due Date Last Done Comments [facility]-Medicare Annual Wellness (AWV) 1954 [facility]-/Child/Adol SDOH Screenings 1954 [facility]- SDOH Screenings 1972 [facility]-Adult SDOH Screenings 1972 CT Colonography 1999 Colonoscopy 1999 FIT-DNA 1999 FIT 1999 FOBT 1999 Sigmoidoscopy 1999 [facility]-Colorectal Cancer Screening 1999 [facility]-Pneumococcal Vaccine: 50+ Years (1 of 1 - PCV) 2004 [facility]-Zoster Vaccines (1 of 2) 2004 [facility]-Depression Screening 03/30/2023 03/30/2022 [id number] Vaccine (1 - 2023- season) 2024 [facility]-Influenza Vaccine (Season Ended) 2025 05/23/2023, 06/20/2016, 06/15/2010 [facility]-RSV Vaccine: 60+ Years or (1 - 1-dose 75+ series) 2029 [facility]-DTaP,Tdap,and Td Vaccines (3 - Td or Tdap) 03/28/2032 03/28/2022, 08/21/2017 [facility]-Hepatitis C Screening Completed 09/10/2023 [facility]-Obesity Intervention Completed 024, 06/28/2022, 05/17/2022, Additional history exists HPV Vaccines Aged Out No longer eligi ble based on patient's age to complete this topic [facility]-HIB Vaccines Aged Out No longer e ligible based on patient's age to complete this topic [facility]-Hepatitis A Vaccines Aged Out No longer eligible based on patient's age to complete this topic [facility]-IPV Vaccines Aged Out No longer e ligible based on patient's age to complete this topic [facility]-Rotavirus Vaccines Aged Out No lo nger eligible based on patient's age to complete this topic Medical Devices Implanted Type Area Seed Core Operator Device Identifier Shelf Expiration Date Model / Serial / Lot Plate Prox Jhonatan Ulna 6h Rt - S. - [id number] Implanted:Qty : 1 on 03/31/2022 by Adolfo Lu MD at [facility] Plate Right: [employer]-[id number] 03/31/2023 [id number] / . / Screw 3.5mm Periart 2.7mm Head Selftap 24mm - S. - [id number] Implanted:Qty : 1 on 03/31/2022 by Adolfo Lu MD at [facility] Screw Right: [employer]-[id number] 03/31/2023 [id number] / . / Screw 3.5mm Periart 2.7mm Head Selftap 42mm - S. - [id number] Implanted:Qty : 1 on 03/31/2022 by Adolfo Lu MD at [facility] Screw Right: [employer]-[id number] 03/31/2023 [id number] / . / Screw 2.7mm Cortical Small Hex Selftap 36mm - S. - [id number] Implanted:Qty : 1 on 03/31/2022 by Adolfo Lu MD at [facility] Screw Right: [employer]-[id number] 03/31/2023 [id number] / . / Screw 3.5mm Periart 2.7mm Head Selftap 12mm - S. - [id number] Implanted:Qty : 1 on 03/31/2022 by Adolfo Lu MD at [facility] Screw Right: [employer]-[id number] 03/31/2023 [id number] / . / Screw 2.7mm Cortical Small Hex Selftap 24mm - S. - [id number] Implanted:Qty : 3 on 03/31/2022 by Adolfo Lu MD at [facility] Screw Right: [employer]-[id number] 03/31/2023 [id number] / . / Screw 2.7mm Cortical Small Hex Selftap 26mm - S. - [id number] Implanted:Qty : 3 on 03/31/2022 by Adolfo Lu MD at [facility] Screw Right: [employer]-[id number] 03/31/2023 [id number] / . / Screw 2.7mm Cortical Small Hex Selftap 56mm - S. - [id number] Implanted:Qty : 1 on 03/31/2022 by Adolfo Lu MD at [facility] Screw Right: [employer]-[id number] 03/31/2023 [id number] / . / Screw 2.7mm Cortical Small Hex Selftap 44mm - S. - [id number] Implanted:Qty : 1 on 03/31/2022 by Adolfo Lu MD at [facility] Screw Right: [employer]-[id number] 03/31/2023 [id number] / . / Screw 2.7mm Cortical Small Hex Selftap 22mm - S. - [id number] Implanted:Qty : 1 on 03/31/2022 by Adolfo Lu MD at [facility] Screw Right: [employer]-03/31/2023 [id number] / . / Screw 2.7mm Cortical Small Hex Selftap 40mm - S. - [id number] Implanted:Qty : 1 on 03/31/2022 by Adolfo Lu MD at [facility] Screw Right: [employer]-03/31/2023 [id number] / . / Explanted Type Area Seed Core Operator Device Identifier Shelf Expiration Date Model / Serial / Lot Screw 3.5mm Periart 2.7mm Head Selftap 24mm - S. - [id number] Explanted:Qty : 1 on 03/31/2022 by Adolfo Lu MD at [facility] Screw Right: [employer]-03/31/2023 [id number] / . / Screw 3.5mm Periart 2.7mm Head Selftap 42mm - S. - [id number] Explanted:Qty : 1 on 03/31/2022 by Adolfo Lu MD at [facility] Screw Right: [employer]-03/31/2023 [id number] / . / Screw 2.7mm Cortical Small Hex Selftap 44mm - S. - [id number] Explanted:Qty : 1 on 03/31/2022 at [facility] Screw Right: [employer]-03/31/2023 [id number] / . / Screw 2.7mm Cortical Small Hex Selftap 22mm - S. - [id number] Explanted:Qty : 1 on 03/31/2022 by Adolfo Lu MD at [facility] Screw Right: [employer]-03/31/2023 [id number] / . / Screw 2.7mm Cortical Small Hex Selftap 40mm - S. - [id number] Explanted:Qty : 1 on 03/31/2022 at [facility] Screw Right: [employer]-03/31/2023 [id number] / . / Screw 2.7mm Cortical Small Hex Selftap 24mm - S. - [id number] Explanted:Qty : 1 on 03/31/2022 at [facility] Screw Right: [employer]-[id number] 03/31/2023 [id number] / . / Screw 2.7mm Cortical Small Hex Selftap 26mm - S. - [id number] Explanted:Qty : 2 on 03/31/2022 at [facility] Screw Right: [employer]-[id number] 03/31/2023 [id number] / . / Screw 3.5mm Periart 2.7mm Head Selftap 12mm - S. - [id number] Explanted:Qty : 1 on 03/31/2022 by Adolfo Lu MD at [facility] Screw Right: [employer]-[id number] 03/31/2023 [id number] / . / Procedures Procedure Name Priority Date/Time Associated Diagnosis Comments HEPATITIS C ANTIBODY - ED W/REFLEX TO HCV QUANT PCR STAT 09/10/2023 6:28 PM EST from Last 3 Months or Most Recently Relevant to Health Maintenance Results * Hepatitis C Antibody - ED (09/10/2023 6:28 PM EST) Hepatitis C Antibody Negative Negative 09/10/2023 7:42 PM EST [facility] Blood Venous blood specimen / Unknown Venipuncture / Unknown 09/10/2023 6:28 PM EST 09/10/2023 7:00 PM EST Felisha Martinez MD LAB BLOOD ORDERABLES Final Re sult [facility] [address] [place] [address] from Last 3 Months or Most Recently Relevant to Health Maintenance Insurance [facility] MEDIC[facility] Advance Directives * Full Code (Latest Code Status on File) Date Activated Date Inactivated Comments 03/31/2022 7:30 PM 03/31/2022 10:49 PM Question Answer Comments Patient has decision-making capacity? Yes Care Teams [employer] Relationship Specialty Start Date End Date Tomy Jackson MD [address] [place] [id number] PCP - General 03/31/22
--- NOTE | 2025-01-09 08:45 | CT_ITS ---
FINAL REPORT CLINICAL HISTORY: abnl MAG,PAD,claudication COMPARISON: 09/06/2021 FINDINGS: Post contrast axial imaging of the aorta and bilateral lower extremity was obtained and reviewed.This study was performed with techniques to keep radiation doses as low as reasonably achievable (ALARA). Individualized dose reduction techniques using automated exposure control or adjustment of mA and/or kV according to the patient's size were employed. There is no evidence of aortic aneurysm. There is no evidence of aortic stenosis. There are calcifications involving the origins of the celiac axis and superior mesenteric artery, producing approximately 50% stenosis of the proximal SMA. The ARACELI is patent. There is calcification in the origins of the renal arteries bilaterally, producing 50% bilateral stenosis in each vessel. There are mild calcifications in the common and external iliac arteries bilaterally, not producing significant stenosis. The internal iliac arteries are patent. Right: There are scattered stenoses in the right mid and distal superficial femoral artery, measuring 50% or less. The tibial vessels demonstrate vascular calcification without significant stenosis. Left: There is near complete occlusion of the mid to distal superficial femoral artery, new since the prior exam. There is a 1.2 cm short segment occlusion, best seen on image #137 of series 3. There are more distal approximately 80% stenoses in the distal SFA as well, increased when compared to the prior exam. The left popliteal artery is patent. Calcification of the tibial vessels is noted without significant stenosis. The lung bases are clear. The gallbladder is present. The liver, spleen, pancreas, and adrenal glands are unremarkable. The appendix is normal in appearance. No evidence of bowel obstruction or wall thickening is noted. There is streak artifact overlying the pelvis secondary to a right hip prosthesis. The bladder is decompressed. 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 There is also approximately 50% stenosis of the renal artery origins bilaterally. There are scattered stenoses in the right mid and distal superficial femoral artery of approximately 50% or less. There is 1.2 cm short segment occlusion of the distal left superficial femoral artery, as well as both more proximal and distal stenoses in the left SFA, increased when compared to the prior exam. Reviewed, Interpreted and Dictated by Wesly Mcdaniels MD Transcribed by Kenzie English Authenticated and [facility]
[2025-01-09] MEDS: IOPAMIDOL-370 (76%);100ML BOTTLE 100 ML IV (09:00)
[2025-01-09] MEDS: 0.9 % SODIUM CHLORIDE 50 ML VIAL IV ×2 (09:00→09:01)
[2025-01-09] MEDS: SODIUM CHLORIDE 0.9% 10ML SYR (RAD ONLY) 10 ML IV (09:00)
[2025-01-09] MEDS: IOPAMIDOL-370 (76%);100ML BOTTLE 20 ML IV (09:01)
== END 2025-01-09 23:59 | disposition home or self-care (01) ==
LOC: RAD 08:24
PROVIDERS: PCP Family Medicine; Visit Provider Physician Assistant
DX: I70.213 Atherosclerosis of native arteries of extremities with intermittent claudication, bilateral legs (principal); I70.1 Atherosclerosis of renal artery; I25.10 Atherosclerotic heart disease of native coronary artery without angina pectoris
CPT/HCPCS: 75635; Q9967